=== PATIENT | female | born 1945 | race African-American/Black ===

== ENCOUNTER 2020-08-17 09:11 | Outpatient (REF) | payer MEDICARE, SELFPAY ==
[2020-08-17 11:02] LABS: Cholesterol 175 mg/dL; HDL Cholesterol 55 mg/dL; LDL Cholesterol Calculated 103 mg/dl; Triglycerides 86 mg/dL
== END 2020-08-17 09:12 | disposition home or self-care (01) ==
LOC: HO.LAB 09:11
PROVIDERS: Visit Provider Internal Medicine
DX: I10 Essential (primary) hypertension (principal)
CPT/HCPCS: 80061

== ENCOUNTER 2020-11-13 08:54 | Outpatient (REF) | payer MEDICARE, SELFPAY ==
[2020-11-13 10:18] LABS: Cholesterol 188 mg/dL; HDL Cholesterol 57 mg/dL; LDL Cholesterol Calculated 116 mg/dl; Triglycerides 75 mg/dL
== END 2020-11-13 08:55 | disposition home or self-care (01) ==
LOC: HO.LAB 08:54
PROVIDERS: PCP Internal Medicine; Visit Provider Internal Medicine
DX: E11.9 Type 2 diabetes mellitus without complications (principal)
CPT/HCPCS: 36415; 80061

== ENCOUNTER 2021-02-14 08:59 | Outpatient (REF) | payer MEDICARE, SELFPAY ==
[2021-02-14 10:54] LABS: Cholesterol 178 mg/dL; HDL Cholesterol 63 mg/dL; LDL Cholesterol Calculated 98 mg/dl; Triglycerides 85 mg/dL
== END 2021-02-14 09:00 | disposition home or self-care (01) ==
LOC: HO.LAB 08:59
PROVIDERS: PCP Internal Medicine; Visit Provider Internal Medicine
DX: E11.9 Type 2 diabetes mellitus without complications (principal)
CPT/HCPCS: 36415; 80061

== ENCOUNTER 2021-05-15 10:57 | Outpatient (REF) | payer MEDICARE, SELFPAY ==
[2021-05-15 12:38] LABS: Cholesterol 171 mg/dL; HDL Cholesterol 60 mg/dL; LDL Cholesterol Calculated 97 mg/dl; Triglycerides 73 mg/dL
== END 2021-05-15 10:58 | disposition home or self-care (01) ==
LOC: HO.LAB 10:57
PROVIDERS: PCP Internal Medicine; Visit Provider Internal Medicine
DX: E11.9 Type 2 diabetes mellitus without complications (principal)
CPT/HCPCS: 36415; 80061

== ENCOUNTER 2021-08-06 10:12 | Outpatient (REF) | payer MEDICARE, SELFPAY ==
[2021-08-06 11:37] LABS: Cholesterol 185 mg/dL; HDL Cholesterol 60 mg/dL; LDL Cholesterol Calculated 108 mg/dl; Triglycerides 86 mg/dL
== END 2021-08-06 10:13 | disposition home or self-care (01) ==
LOC: HO.LAB 10:12
PROVIDERS: PCP Internal Medicine; Visit Provider Internal Medicine
DX: E11.9 Type 2 diabetes mellitus without complications (principal)
CPT/HCPCS: 36415; 80061

== ENCOUNTER 2021-11-12 08:55 | Outpatient (REF) | payer MEDICARE, SELFPAY ==
[2021-11-12 10:38] LABS: Cholesterol 185 mg/dL; HDL Cholesterol 59 mg/dL; LDL Cholesterol Calculated 112 mg/dl; Triglycerides 72 mg/dL
== END 2021-11-12 08:56 | disposition home or self-care (01) ==
LOC: HO.LAB 08:55
PROVIDERS: PCP Internal Medicine; Visit Provider Internal Medicine
DX: Z00.00 Encounter for general adult medical examination without abnormal findings (principal)
CPT/HCPCS: 36415; 80061

== ENCOUNTER 2022-02-12 09:03 | Outpatient (REF) | payer MEDICARE, SELFPAY ==
[2022-02-12 09:49] LABS: MANUAL DIFF FLAG NO
[2022-02-12 10:35] LABS: Basophils Percent Auto 0.5 % (0-2); Eosinophils Absolute Auto 0.1 X10*3/uL (0.0-0.4); Eosinophils Percent Auto 1.4 % (0-4); Hematocrit 40.2 % (37.0-47.0); Hemoglobin 12.8 g/dl (12.0-16.0); Imm Gran Abs Auto 0.02 X10*3/uL (0.00-0.03); Imm Gran Pct Auto 0.3 % (0.0-0.4); Lymphocytes Absolute Auto 2.3 X10*3/uL (1.2-4.9); Lymphocytes Percent Auto 29.1 % (20-40); Mean Corpuscular HGB Conc 31.8 g/dl (31.0-35.0); Mean Corpuscular Hemoglobin 22.7 pg (27.0-33.0); Mean Corpuscular Volume 71.4 fL (80.0-98.0); Monocytes Absolute Auto 0.5 X10*3/uL (0.1-1.2); Monocytes Percent Auto 6.4 % (2-11); Neutrophils Absolute Auto 4.9 x10*3/uL (2.0-8.3); Neutrophils Percent Auto 62.3 % (45-73); Platelet Count 277 X10*3/uL (160-400); Red Blood Count 5.63 X10*6/uL (4.20-5.50); Red Cell Distribution Width 18.2 % (11.0-16.0); White Blood Count 7.9 X10*3/uL (4.8-10.8)
[2022-02-12 11:10] LABS: Alanine Aminotransferase 10 U/L (0-31); Alkaline Phosphatase 95 U/L (39-117); Anion Gap 12 (12-20); Aspartate Amino Transferase 17 U/L (5-31); Bilirubin Total 0.5 mg/dL (0.0-1.0); Blood Urea Nitrogen 19 mg/dL (9-16); Calcium 9.9 mg/dL (8.4-10.2); Carbon Dioxide 28 mmol/L (22-29); Chloride 105 mmol/L (96-108); Cholesterol 184 mg/dL; Estimated Glomerular Filt Rate > 60; Glucose Fasting 98 mg/dL (60-99); HDL Cholesterol 63 mg/dL; LDL Cholesterol Calculated 110 mg/dl; Potassium 3.8 mmol/L (3.3-5.1); Sodium 141 mmol/L (135-145); Total Protein 6.6 g/dL (6.5-8.0); Triglycerides 56 mg/dL
[2022-02-12 12:12] LABS: Thyroid Stimulating Hormone 0.91 uIU/mL (0.32-4.0)
== END 2022-02-12 09:04 | disposition home or self-care (01) ==
LOC: HO.LAB 09:03
PROVIDERS: PCP Internal Medicine; Visit Provider Internal Medicine
DX: Z00.00 Encounter for general adult medical examination without abnormal findings (principal); Z13.0 Encounter for screening for diseases of the blood and blood-forming organs and certain disorders involving the immune mechanism; I10 Essential (primary) hypertension
CPT/HCPCS: 36415; 80053; 80061; 84443; 85025

== ENCOUNTER 2022-05-07 08:56 | Outpatient (REF) | payer MEDICARE, SELFPAY ==
[2022-05-07 10:02] LABS: Cholesterol 181 mg/dL; HDL Cholesterol 54 mg/dL; LDL Cholesterol Calculated 110 mg/dl; Triglycerides 86 mg/dL
== END 2022-05-07 08:57 | disposition home or self-care (01) ==
LOC: HO.LAB 08:56
PROVIDERS: PCP Internal Medicine; Visit Provider Internal Medicine
DX: Z13.9 Encounter for screening, unspecified (principal)
CPT/HCPCS: 36415; 80061

== ENCOUNTER 2022-11-19 09:03 | Outpatient (REF) | payer MEDICARE, SELFPAY ==
[2022-11-19 09:30] LABS: MANUAL DIFF FLAG NO
[2022-11-19 10:11] LABS: Basophils Absolute Auto 0.1 X10*3/uL (0.0-0.2); Basophils Percent Auto 0.7 % (0-2); Eosinophils Absolute Auto 0.2 X10*3/uL (0.0-0.4); Hematocrit 39.9 % (37.0-47.0); Hemoglobin 12.5 g/dl (12.0-16.0); Imm Gran Abs Auto 0.02 X10*3/uL (0.00-0.03); Imm Gran Pct Auto 0.3 % (0.0-0.4); Lymphocytes Absolute Auto 2.4 X10*3/uL (1.2-4.9); Lymphocytes Percent Auto 32.1 % (20-40); Mean Corpuscular HGB Conc 31.3 g/dl (31.0-35.0); Mean Corpuscular Hemoglobin 22.6 pg (27.0-33.0); Mean Platelet Volume 11.9 fL (9.4-12.3); Monocytes Absolute Auto 0.5 X10*3/uL (0.1-1.2); Monocytes Percent Auto 7.4 % (2-11); Neutrophils Absolute Auto 4.2 x10*3/uL (2.0-8.3); Neutrophils Percent Auto 57.5 % (45-73); Platelet Count 205 X10*3/uL (160-400); Red Blood Count 5.54 X10*6/uL (4.20-5.50); Red Cell Distribution Width 17.1 % (11.0-16.0); White Blood Count 7.3 X10*3/uL (4.8-10.8)
[2022-11-19 10:53] LABS: Alanine Aminotransferase 11 U/L (0-31); Alkaline Phosphatase 116 U/L (39-117); Anion Gap 12 (12-20); Aspartate Amino Transferase 18 U/L (5-31); Bilirubin Total 0.8 mg/dL (0.0-1.0); Blood Urea Nitrogen 12 mg/dL (9-16); Calcium 9.7 mg/dL (8.4-10.2); Carbon Dioxide 31 mmol/L (22-29); Chloride 105 mmol/L (96-108); Cholesterol 178 mg/dL; Estimated Glomerular Filt Rate > 60; Glucose Fasting 102 mg/dL (60-99); HDL Cholesterol 61 mg/dL; LDL Cholesterol Calculated 108 mg/dl; Potassium 4.1 mmol/L (3.3-5.1); Sodium 144 mmol/L (135-145); Total Protein 6.4 g/dL (6.5-8.0); Triglycerides 46 mg/dL
[2022-11-19 11:11] LABS: Thyroid Stimulating Hormone 0.96 uIU/mL (0.32-4.0)
== END 2022-11-19 09:04 | disposition home or self-care (01) ==
LOC: HO.LAB 09:03
PROVIDERS: PCP Internal Medicine; Visit Provider Internal Medicine
DX: E03.9 Hypothyroidism, unspecified (principal); I10 Essential (primary) hypertension; E78.5 Hyperlipidemia, unspecified; Z13.0 Encounter for screening for diseases of the blood and blood-forming organs and certain disorders involving the immune mechanism
CPT/HCPCS: 36415; 80053; 80061; 84443; 85025

== ENCOUNTER 2023-02-20 09:24 | Outpatient (REF) | payer MEDICARE, SELFPAY ==
[2023-02-20 11:15] LABS: Cholesterol 172 mg/dL; HDL Cholesterol 52 mg/dL; LDL Cholesterol Calculated 107 mg/dl; Triglycerides 65 mg/dL
== END 2023-02-20 09:25 | disposition home or self-care (01) ==
LOC: HO.LAB 09:24
PROVIDERS: PCP Internal Medicine; Visit Provider Internal Medicine
DX: E78.5 Hyperlipidemia, unspecified (principal)
CPT/HCPCS: 36415; 80061

== ENCOUNTER 2023-06-10 09:21 | Outpatient (REF) | payer MEDICARE, SELFPAY ==
[2023-06-10 10:51] LABS: Cholesterol 162 mg/dL (<200); HDL Cholesterol 58 mg/dL (>40); LDL Cholesterol Calculated 91 mg/dL (<100); Triglycerides 68 mg/dL (<150)
== END 2023-06-10 09:22 | disposition home or self-care (01) ==
LOC: HO.LAB 09:21
PROVIDERS: PCP Internal Medicine; Visit Provider Internal Medicine
DX: E78.5 Hyperlipidemia, unspecified (principal)
CPT/HCPCS: 36415; 80061

== ENCOUNTER 2023-06-13 09:16 | Outpatient (AMB) | payer MEDICARE, SELFPAY ==
[2023-06-13 09:22] VITALS: BP 148/72; PULSE 100; O2SAT 99; BMI 40.6
--- NOTE | 2023-06-13 09:22 | MHC.PC.OV ---
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 Accompanied by: Spouse Allergies animal dander Allergy (Unknown, Verified 06/13/23 09:23) UNKNOWN cat dander Allergy (Unknown, Verified 06/13/23 09:23) Unknown dog dander Allergy (Unknown, Verified 06/13/23 09:23) Unknown egg Allergy (Unknown, Verified 06/13/23 09:23) Unknown horse dander Allergy (Unknown, Verified 06/13/23 09:23) Unknown peanut [PEANUT] Allergy (Unknown, Verified 06/13/23 09:23) UNKNOWN Medication List - Last Reconciled 06/13/23 by Ed Chirinos MD amlodipine 10 mg PO DAILY atorvastatin 20 mg PO DAILY olanzapine 5 mg PO BEDTIME potassium chloride ER 20 mEq PO DAILY triamterene-hydrochlorothiazid 37.5-25 mg 1 tab PO DAILY Tobacco use date assessed: 03/12/23 Fall risk assessment: No Falls in past year Last assessed Fall Risk: 06/13/23 Dental Screening Dental Screen Date: 06/13/23 Did you have a dental visit in the last 12 months?: Yes Did you have a dental problem in the last 6 months where you did not have access to dental care?: No Was dental information given to patient?: Patient has dentist HPI 3mth f/u HPI Details HTN hyperlipidemia and obesity; stable on rx PFSH Medical History Physical exam Obesity Hypertension Hyperlipidemia Surgical History History of knee replacement procedure of right knee History of knee replacement procedure of left knee Family History Father Lung cancer Mother Bone cancer Daughter No problems noted. Social History Housing: House Alcohol intake: never Patient Tobacco Use Status: Never used Tobacco e-Cigarette/Vaping Use: Never Used Second Hand Smoke Exposure: No service: No Current occupational status: retired Current occupational exposures/hazards: No Cognitive needs: No Hearing needs: No Vision needs: Yes Questionnaire PHQ-9 Over the last 2 weeks, how often have you been bothered by any of the following problems? 1. Little interest or pleasure in doing things: not at all 2. Feeling down, depressed, or hopeless: not at all 3. Trouble falling or staying asleep, or sleeping too much: not at all 4. Feeling tired or having little energy: not at all 5. Poor appetite or overeating: not at all 6. Feeling bad about yourself - or that you are a failure or have let yourself or your family down: not at all 7. Trouble concentrating on things, such as reading the newspaper or watching television: not at all 8. Moving or speaking so slowly that other people could have noticed. Or the opposite - being so fidgety or restless that you have been moving around a lot more than usual: not at all 9. Thoughts that you would be better off or of hurting yourself in some way: not at all Total score: 0 Depression Screening Interpretation: Negative 46894 - PHQ-9 Billing: Yes Source: Developed by Drs. Jai Aiken, Ramona Estevez, Tien Su and colleagues, with an educational luisito from [employer]. Thrive Questionnaire Date Thrive assessed: 11/25/22 AUDIT C Alcohol Use Questionnaire (AUDIT-C) Score Reviewed/Action Taken: Yes ALEXANDRA-7 AMB Questionnaire ALEXANDRA-7 Date ALEXANDRA - 7 assessed: 11/25/22 Source: Developed by Drs. Jai Aiken, Ramona Estevez, Tien Su and colleagues, with an educational luisito from [employer]. Review of Systems Const Denies chills, Denies headache(s) and Denies weight loss ENT Denies headache(s) Card Denies chest pain, Denies syncope, Denies irregular heart rhythm and Denies dyspnea Resp Denies chest congestion, Denies cough and Denies dyspnea GI Denies abdominal pain, Denies change in stool character, Denies nausea and Denies vomiting Musc Denies deformity and Denies joint swelling Neuro Denies syncope and Denies headache(s) Physical exam (Primary Care) Vital Signs: Last Vital Signs Pulse 100 06/13/23 09:22 BP 148/72 H 06/13/23 09:22 Pulse Ox 99 06/13/23 09:22 Oxygen Delivery Method Room Air 06/13/23 09:22 BMI result Body Mass Index 40.6 morbid obesity BMI Assessment/Plan discussion: High BMI High, discussed plan: lifestyle, weight reduction, dietary and physical activity Tobacco/Smoking Status: Tobacco use Status Tobacco use date assessed 03/12/23 06/13/23 09:24 Patient Tobacco Use Status Never used Tobacco 06/13/23 09:24 e-Cigarette/Vaping Use Never Used 06/13/23 09:24 PHQ-9: PHQ-9 Score PHQ-9: Total score 0 06/13/23 09:24 Depression Screening Interpretation: Negative Thrive Assessment: Date of Thrive Assessment Date Thrive assessed 11/25/22 06/13/23 09:24 Const General: cooperative, comfortable, no acute distress and alert Neck Neck: Yes no lymphadenopathy Thyroid: Thyroid normal Resp Effort & Inspection: normal respiratory effort Auscultation: clear to auscultation bilaterally Percussion: percussion normal Cardio Jugular venous distension: no JVD Palpation: normal PMI Rate: regular rate Rhythm: regular rhythm Heart sounds: S1 normal heart sound present and S2 normal heart sound present GI Inspection: Yes normal to inspection Palpation (GI): No hepatosplenomegaly present Skin General skin exam: no rashes or lesions noted Extrem General: Yes no clubbing, cyanosis or edema Assessment and Plan Assessment & Plan (1) Hypertension: Code(s): I10 - Essential (primary) hypertension Plan: stable; same rx (2) Hyperlipidemia: Code(s): E78.5 - Hyperlipidemia, unspecified Plan: stable (3) Obesity: Code(s): E66.9 - Obesity, unspecified Plan: as above Orders: Orders Thyroid Stimulating Hormone Today E03.9 - Hypothyroidism, unspecified Lipid Panel Today E78.5 - Hyperlipidemia, unspecified Complete Blood Count Auto Diff Today D64.9 - Anemia, unspecified Comprehensive [place]. Panel Fast Today N28.9 - Disorder of kidney and ureter, unspecified Coding Level of Care Code Est Pt Level 4 (43597) Diagnoses Hypertension I10 Hyperlipidemia E78.5 Obesity E66.9
== END 2023-06-13 09:57 | disposition home or self-care (01) ==
PROVIDERS: PCP Internal Medicine; Visit Provider Internal Medicine
DX: I10 Essential (primary) hypertension (principal); E78.5 Hyperlipidemia, unspecified; E66.9 Obesity, unspecified; Z68.41 Body mass index [BMI] 40.0-44.9, adult
CPT/HCPCS: 99214

== ENCOUNTER 2023-09-15 09:17 | Outpatient (REF) | payer MEDICARE, SELFPAY ==
[2023-09-15 09:29] LABS: MANUAL DIFF FLAG NO
[2023-09-15 09:34] LABS: Basophils Percent Auto 0.7 % (0-2); Hematocrit 40.7 % (37.0-47.0); Imm Gran Pct Auto 0.5 % (0.0-0.4); Lymphocytes Percent Auto 33.4 % (20-40); Mean Corpuscular HGB Conc 31.9 g/dl (31.0-35.0); Mean Corpuscular Hemoglobin 22.8 pg (27.0-33.0); Mean Corpuscular Volume 71.4 fL (80.0-98.0); Neutrophils Percent Auto 55.4 % (45-73); Platelet Count 267 X10*3/uL (160-400); Red Cell Distribution Width 17.3 % (11.0-16.0); White Blood Count 10.2 X10*3/uL (4.8-10.8)
[2023-09-15 09:35] LABS: Basophils Absolute Auto 0.1 X10*3/uL (0.0-0.2); Eosinophils Absolute Auto 0.2 X10*3/uL (0.0-0.4); Imm Gran Abs Auto 0.05 X10*3/uL (0.00-0.03); Lymphocytes Absolute Auto 3.4 X10*3/uL (1.2-4.9); Monocytes Absolute Auto 0.8 X10*3/uL (0.1-1.2); Neutrophils Absolute Auto 5.7 x10*3/uL (2.0-8.3)
[2023-09-15 10:21] LABS: Alanine Aminotransferase 8 U/L (0-31); Alkaline Phosphatase 104 U/L (39-117); Anion Gap 14 (12-20); Aspartate Amino Transferase 15 U/L (5-31); Bilirubin Total 0.6 mg/dL (0.0-1.0); Blood Urea Nitrogen 14 mg/dL (9-16); Calcium 9.8 mg/dL (8.4-10.2); Carbon Dioxide 24 mmol/L (22-29); Chloride 106 mmol/L (96-108); Cholesterol 172 mg/dL (<200); Estimated Glomerular Filt Rate > 60; Glucose Fasting 112 mg/dL (60-99); HDL Cholesterol 61 mg/dL (>40); LDL Cholesterol Calculated 101 mg/dL (<100); Potassium 3.3 mmol/L (3.3-5.1); Sodium 141 mmol/L (135-145); Total Protein 7.2 g/dL (6.5-8.0); Triglycerides 51 mg/dL (<150)
[2023-09-15 10:26] LABS: Thyroid Stimulating Hormone 0.91 uIU/mL (0.32-4.0)
== END 2023-09-15 09:18 | disposition home or self-care (01) ==
LOC: HO.LAB 09:17
PROVIDERS: PCP Internal Medicine; Visit Provider Internal Medicine
DX: D64.9 Anemia, unspecified (principal); N28.9 Disorder of kidney and ureter, unspecified; E78.5 Hyperlipidemia, unspecified; E03.9 Hypothyroidism, unspecified
CPT/HCPCS: 36415; 80053; 80061; 84443; 85025

== ENCOUNTER 2023-09-17 08:14 | Outpatient (AMB) | payer MEDICARE, SELFPAY ==
[2023-09-17 08:33] VITALS: BP 148/78; PULSE 95; O2SAT 99; BMI 40.2
--- NOTE | 2023-09-17 08:33 | A.OFFPC_ITS ---
Vital Signs 09/17/23 08:33 Height 5 ft 4.5 in Weight 238 lb BMI 40.2 BP 148/78 H Blood Pressure Location Lt brachial Position Sitting Pulse 95 Pulse Source Pulse Oximeter Pulse Oximetry (%) 99 Oxygen Delivery Method Room Air Intake Visit Reasons: 3mth f/u [employer]: Present Allergies animal dander Allergy (Unknown, Verified 09/17/23 08:33) UNKNOWN cat dander Allergy (Unknown, Verified 09/17/23 08:33) Unknown dog dander Allergy (Unknown, Verified 09/17/23 08:33) Unknown egg Allergy (Unknown, Verified 09/17/23 08:33) Unknown horse dander Allergy (Unknown, Verified 09/17/23 08:33) Unknown peanut [PEANUT] Allergy (Unknown, Verified 09/17/23 08:33) UNKNOWN Medication List - Last Reconciled 09/17/23 by Ed Chirinos MD amlodipine 10 mg PO DAILY atorvastatin 20 mg PO DAILY olanzapine 5 mg PO BEDTIME potassium chloride ER 20 mEq PO DAILY triamterene-hydrochlorothiazid 37.5-25 mg 1 tab PO DAILY Tobacco use date assessed: 03/12/23 Fall risk assessment: No Falls in past year Last assessed Fall Risk: 09/17/23 Dental Screening Dental Screen Date: 09/17/23 Did you have a dental visit in the last 12 months?: Yes Did you have a dental problem in the last 6 months where you did not have access to dental care?: No Was dental information given to patient?: Patient has dentist HPI 3mth f/u HPI Details HTN and hyperlip on rx; doing well; compliant [facility] Medical History Physical exam Obesity Hypertension Hyperlipidemia Surgical History History of knee replacement procedure of right knee History of knee replacement procedure of left knee Family History Father Lung cancer Mother Bone cancer Daughter No problems noted. Social History Housing: House Alcohol intake: never Patient Tobacco Use Status: Never used Tobacco e-Cigarette/Vaping Use: Never Used Second Hand Smoke Exposure: No service: No Current occupational status: retired Current occupational exposures/hazards: No Cognitive needs: No Hearing needs: No Vision needs: Yes Questionnaire Thrive Questionnaire Date Thrive assessed: 11/25/22 ALEXANDRA-7 AMB Questionnaire ALEXANDRA-7 Date ALEXANDRA - 7 assessed: 11/25/22 Source: Developed by Drs. Jai Aiken, Ramona Estevez, Tien Su and colleagues, with an educational luisito from [employer]. Review of Systems Const Denies chills, Denies headache(s) and Denies weight loss ENT Denies headache(s) Card Denies chest pain, Denies syncope, Denies irregular heart rhythm and Denies dyspnea Resp Denies chest congestion, Denies cough and Denies dyspnea GI Denies abdominal pain, Denies change in stool character, Denies nausea and Denies vomiting Musc Denies deformity and Denies joint swelling Neuro Denies syncope and Denies headache(s) Physical exam (Primary Care) Vital Signs: Last Vital Signs Pulse 95 09/17/23 08:33 BP 148/78 H 09/17/23 08:33 Pulse Ox 99 09/17/23 08:33 Oxygen Delivery Method Room Air 09/17/23 08:33 BMI result Body Mass Index 40.2 Tobacco/Smoking Status: Tobacco use Status Tobacco use date assessed 03/12/23 09/17/23 08:34 Patient Tobacco Use Status Never used Tobacco 09/17/23 08:34 e-Cigarette/Vaping Use Never Used 09/17/23 08:34 Thrive Assessment: Date of Thrive Assessment Date Thrive assessed 11/25/22 09/17/23 08:34 Const General: cooperative, comfortable, no acute distress and alert Neck Neck: Yes no lymphadenopathy Thyroid: Thyroid normal Resp Effort & Inspection: normal respiratory effort Auscultation: clear to auscultation bilaterally Percussion: percussion normal Cardio Jugular venous distension: no JVD Palpation: normal PMI Rate: regular rate Rhythm: regular rhythm Heart sounds: S1 normal heart sound present and S2 normal heart sound present GI Inspection: Yes normal to inspection Palpation (GI): No hepatosplenomegaly present Skin General skin exam: no rashes or lesions noted Extrem General: Yes no clubbing, cyanosis or edema Assessment and Plan Assessment & Plan (1) Hypertension: Code(s): I10 - Essential (primary) hypertension Plan: stable; same rx (2) Hyperlipidemia: Code(s): E78.5 - Hyperlipidemia, unspecified Plan: stable; same rx Orders: Orders Lipid Panel Today E78.5 - Hyperlipidemia, unspecified Coding Level of Care Code Est Pt Level 3 (64531) Diagnoses Hypertension I10 Hyperlipidemia E78.5
== END 2023-09-17 08:58 | disposition home or self-care (01) ==
PROVIDERS: PCP Internal Medicine; Visit Provider Internal Medicine
DX: I10 Essential (primary) hypertension (principal); E78.5 Hyperlipidemia, unspecified
CPT/HCPCS: 99213

== ENCOUNTER 2023-10-23 10:40 | Outpatient (AMB) | payer MEDICARE, SELFPAY ==
[2023-10-23 11:06] VITALS: BP 168/82; PULSE 123; TEMP 36.8; O2SAT 98; BMI 41.4
--- NOTE | 2023-10-23 11:06 | MHC.OFFWIV ---
Intake Vital Signs 10/23/23 11:06 Height 5 ft 4.5 in Weight 245 lb BMI 41.4 BP 168/82 H Blood Pressure Location Lt brachial Position Sitting Pulse 123 H Pulse Source Pulse Oximeter Temp 98.3 F Temp Source Oral Pulse Oximetry (%) 98 Oxygen Delivery Method Room Air Intake Visit Reasons: EP Cough/Cold [phone] Intake Note: pt is here today for cough cold started last friday Patient Tobacco Use Status: Never used Tobacco Allergies animal dander Allergy (Unknown, Verified 10/23/23 11:07) UNKNOWN cat dander Allergy (Unknown, Verified 10/23/23 11:07) Unknown dog dander Allergy (Unknown, Verified 10/23/23 11:07) Unknown egg Allergy (Unknown, Verified 10/23/23 11:07) Unknown horse dander Allergy (Unknown, Verified 10/23/23 11:07) Unknown peanut [PEANUT] Allergy (Unknown, Verified 10/23/23 11:07) UNKNOWN Do you need a note to return to daycare/school/sports/work: No HPI HPI Comments History of Present Illness Details 77 y/o female presents to walk in clinic with c/o cough and sinus cold x 7 days. [facility] Medical History Physical exam Obesity Hypertension Hyperlipidemia Surgical History History of knee replacement procedure of right knee History of knee replacement procedure of left knee Family History Father Lung cancer Mother Bone cancer Daughter No problems noted. Social History Housing: House Alcohol intake: never Patient Tobacco Use Status: Never used Tobacco e-Cigarette/Vaping Use: Never Used Second Hand Smoke Exposure: No service: No Current occupational status: retired Current occupational exposures/hazards: No Cognitive needs: No Hearing needs: No Vision needs: Yes Physical Exam Vital Signs: Last Vital Signs Temp 98.3 F 10/23/23 11:06 Pulse 123 H 10/23/23 11:06 BP 168/82 H 10/23/23 11:06 Pulse Ox 98 10/23/23 11:06 Oxygen Delivery Method Room Air 01/25/24 11:06 BMI result Body Mass Index 41.4 Const General: comfortable and no acute distress HEENT Head: Yes normocephalic Ears: external ears normal and TM's normal bilaterally General nose exam: Normal nasal mucous membranes and turbinates present Face and sinus: Yes sinuses nontender Mouth: moist mucous membranes Throat: Yes uvula midline Resp Effort & Inspection: normal respiratory effort Auscultation: clear to auscultation bilaterally Cardio Rate: regular rate Rhythm: regular rhythm Assessment & Plan Assessment & Plan (1) Cough in adult: Code(s): R05.9 - Cough, unspecified Plan: - OTC cold remedies - Rest and hydrate with warm fluids with honey (2) Upper respiratory infection: Code(s): J06.9 - Acute upper respiratory infection, unspecified Qualifiers: URI type: unspecified viral URI Qualified Code(s): J06.9 - Acute upper respiratory infection, unspecified Plan: - OTC cold remedies - Rest and hydrate with warm fluids with honey - SARs Orders: Orders SARS-CoV2/FLU/RSV Today J06.9 - Acute upper respiratory infection, unspecified, R05.9 - Cough, unspecified Medications: New acetaminophen 1,000 mg (2 x 500 mg) PO Q6H PRN 30 caps 0RF fever R51.9 - Headache, unspecified benzonatate 100 mg PO TID 30 caps 0RF J06.9 - Acute upper respiratory infection, unspecified, R05.9 - Cough, unspecified Coding Level of Care Code Est Pt Level 2 (38723) Diagnoses Cough in adult R05.9 Viral upper respiratory tract infection J06.9 URI type: unspecified viral URI Time Spent (min) 10
== END 2023-10-23 12:07 | disposition home or self-care (01) ==
PROVIDERS: PCP Internal Medicine; Visit Provider Nurse Practitioner Family
DX: R05.9 Cough, unspecified (principal); J06.9 Acute upper respiratory infection, unspecified
CPT/HCPCS: 99213

== ENCOUNTER 2023-10-23 15:03 | Outpatient (REF) | payer MEDICARE, SELFPAY ==
[2023-10-23 15:59] LABS: Influenza A PCR NEGATIVE (Negative); Influenza B PCR NEGATIVE (Negative); Resp Syncy Virus RNA Qual PCR NEGATIVE (Negative); SARS COV2 PCR INHOUSE NEGATIVE (Negative)
== END 2023-10-23 15:04 | disposition home or self-care (01) ==
LOC: HO.LNP 15:03
PROVIDERS: Visit Provider Nurse Practitioner Family
DX: Z11.52 Encounter for screening for COVID-19 (principal); R05.9 Cough, unspecified; J06.9 Acute upper respiratory infection, unspecified
CPT/HCPCS: 0241U

== ENCOUNTER 2023-12-16 09:28 | Outpatient (REF) | payer MEDICARE, SELFPAY ==
[2023-12-16 11:08] LABS: Cholesterol 176 mg/dL (<200); HDL Cholesterol 67 mg/dL (>40); LDL Cholesterol Calculated 99 mg/dL (<100); Triglycerides 52 mg/dL (<150)
== END 2023-12-16 09:29 | disposition home or self-care (01) ==
LOC: HO.LAB 09:28
PROVIDERS: PCP Internal Medicine; Visit Provider Internal Medicine
DX: E78.5 Hyperlipidemia, unspecified (principal)
CPT/HCPCS: 36415; 80061

== ENCOUNTER 2023-12-22 09:17 | Outpatient (AMB) | payer MEDICARE, SELFPAY ==
[2023-12-22 09:19] VITALS: BP 152/76; PULSE 103; O2SAT 99; BMI 41.7
--- NOTE | 2023-12-22 09:19 | A.OFFPC_ITS ---
Vital Signs 12/22/23 09:19 Height 5 ft 4.5 in Weight 247 lb BMI 41.7 BP 152/76 H Blood Pressure Location Lt brachial Position Sitting Pulse 103 H Pulse Source Pulse Oximeter Pulse Oximetry (%) 99 Oxygen Delivery Method Room Air Intake Visit Reasons: 3mth f/u Vocational Trainer: Not Required per policy Accompanied by: Self / Same As Patient Allergies animal dander Allergy (Unknown, Verified 12/22/23 09:19) UNKNOWN cat dander Allergy (Unknown, Verified 12/22/23 09:19) Unknown dog dander Allergy (Unknown, Verified 12/22/23 09:19) Unknown egg Allergy (Unknown, Verified 12/22/23 09:19) Unknown horse dander Allergy (Unknown, Verified 12/22/23 09:19) Unknown peanut [PEANUT] Allergy (Unknown, Verified 12/22/23 09:19) UNKNOWN Medication List - Last Reconciled 12/23/23 by Ed Chirinos MD amlodipine 10 mg PO DAILY atorvastatin 20 mg PO DAILY olanzapine 5 mg PO BEDTIME potassium chloride ER 20 mEq PO DAILY triamterene-hydrochlorothiazid 37.5-25 mg 1 tab PO DAILY Tobacco use date assessed: 12/22/23 Fall risk assessment: No Falls in past year Last assessed Fall Risk: 12/22/23 Dental Screening Dental Screen Date: 12/22/23 Did you have a dental visit in the last 12 months?: Yes Did you have a dental problem in the last 6 months where you did not have access to dental care?: No Was dental information given to patient?: Patient has dentist HPI 3mth f/u HPI Details HTN hyperlipidemia and chronic anxiety PFSH Medical History Physical exam Obesity Hypertension Hyperlipidemia Surgical History History of knee replacement procedure of right knee History of knee replacement procedure of left knee Family History Father Lung cancer Mother Bone cancer Daughter No problems noted. Social History Housing: House Alcohol intake: never Patient Tobacco Use Status: Never used Tobacco e-Cigarette/Vaping Use: Never Used Second Hand Smoke Exposure: No service: No Current occupational status: retired Current occupational exposures/hazards: No Cognitive needs: No Hearing needs: No Vision needs: Yes Questionnaire PHQ-9 Over the last 2 weeks, how often have you been bothered by any of the following problems? 1. Little interest or pleasure in doing things: not at all 2. Feeling down, depressed, or hopeless: not at all 3. Trouble falling or staying asleep, or sleeping too much: not at all 4. Feeling tired or having little energy: not at all 5. Poor appetite or overeating: not at all 6. Feeling bad about yourself - or that you are a failure or have let yourself or your family down: not at all 7. Trouble concentrating on things, such as reading the newspaper or watching television: not at all 8. Moving or speaking so slowly that other people could have noticed. Or the opposite - being so fidgety or restless that you have been moving around a lot more than usual: not at all 9. Thoughts that you would be better off or of hurting yourself in some way: not at all Total score: 0 Depression Screening Interpretation: Negative Depression Screening Done: Yes 80392 - PHQ-9 Billing: Yes Source: Developed by Drs. Jai Aiken, Ramona Estevez, Tien Su and colleagues, with an educational luisito from [employer]. Thrive Questionnaire Date Thrive assessed: 12/22/23 I am a: Patient What is your living situation today?: I have a steady place to live Within the past 12 months, did the food you bought not last and you didn't have the money to get more?: Never true Within the past 12 months, did you worry whether your food would run out before you got money to buy more?: Never true Do you have trouble paying for medicines?: No Do you have trouble getting transportation to medical appointments?: No Do you have trouble paying your heating and electricity bill?: No Do you have trouble taking care of your child, family member or friend?: No Do you have trouble with day-to-day activities such as bathing, preparing meals, shopping, managing finances, etc.?: No Are you currently unemployed and looking for a job?: No Are you interested in more education?: No Please select the resources that you would like help with: None THRIVE Score: 0 AUDIT C Alcohol Use Questionnaire (AUDIT-C) 1. How often do you have a drink containing alcohol?: Never Total Score: 0 Score Reviewed/Action Taken: Yes ALEXANDRA-7 AMB Questionnaire ALEXANDRA-7 Date ALEXANDRA - 7 assessed: 12/22/23 Feeling nervous, anxious, or on edge: 0 = Not at all Not being able to stop or control worryin = Not at all Worrying too much about different things: 0 = Not at all Trouble relaxin = Not at all Being so restless that it is hard to sit still: 0 = Not at all Becoming easily annoyed or irritable: 0 = Not at all Feeling afraid as if something awful might happen: 0 = Not at all Total ALEXANDRA-7 score (0-4 normal; 5-9 mild; 10-14 moderate; 15-21 severe): 0 Source: Developed by Drs. Jai Aiken, Ramona Estevez, Tien Su and colleagues, with an educational luisito from [employer]. ALEXANDRA-7 Assessment Billing ALEXANDRA-7 Assessment Tool: ALEXANDRA-7 Assessment [id number] Review of Systems Const Denies chills, Denies headache(s) and Denies weight loss ENT Denies headache(s) Card Denies chest pain, Denies syncope, Denies irregular heart rhythm and Denies dyspnea Resp Denies chest congestion, Denies cough and Denies dyspnea GI Denies abdominal pain, Denies change in stool character, Denies nausea and Denies vomiting Musc Denies deformity and Denies joint swelling Neuro Denies syncope and Denies headache(s) Physical exam (Primary Care) Vital Signs: Last Vital Signs Pulse 103 H 12/22/23 09:19 BP 152/76 H 12/22/23 09:19 Pulse Ox 99 12/22/23 09:19 Oxygen Delivery Method Room Air 12/22/23 09:19 BMI result Body Mass Index 41.7 Tobacco/Smoking Status: Tobacco use Status Tobacco use date assessed 12/22/23 12/22/23 09:20 Patient Tobacco Use Status Never used Tobacco 12/22/23 09:20 e-Cigarette/Vaping Use Never Used 12/22/23 09:20 PHQ-9: PHQ-9 Score PHQ-9: Total score 0 12/22/23 09:32 Depression Screening Interpretation: Negative Thrive Assessment: Date of Thrive Assessment Date Thrive assessed 12/22/23 12/22/23 09:20 Const General: cooperative, comfortable, no acute distress and alert Neck Neck: Yes no lymphadenopathy Thyroid: Thyroid normal Resp Effort & Inspection: normal respiratory effort Auscultation: clear to auscultation bilaterally Percussion: percussion normal Cardio Jugular venous distension: no JVD Palpation: normal PMI Rate: regular rate Rhythm: regular rhythm Heart sounds: S1 normal heart sound present and S2 normal heart sound present GI Inspection: Yes normal to inspection Palpation (GI): No hepatosplenomegaly present Skin General skin exam: no rashes or lesions noted Extrem General: Yes no clubbing, cyanosis or edema Assessment and Plan Assessment & Plan (1) Hypertension: Code(s): I10 - Essential (primary) hypertension Plan: stable; same rx (2) Hyperlipidemia: Code(s): E78.5 - Hyperlipidemia, unspecified Plan: stable; same rx (3) Anxiety: Code(s): F41.9 - Anxiety disorder, unspecified Plan: ref Orders: Orders Complete Blood Count Auto Diff 12/22/23 D64.9 - Anemia, unspecified Lipid Panel 12/22/23 E78.5 - Hyperlipidemia, unspecified Comprehensive [place]. Panel Fast 12/22/23 N28.9 - Disorder of kidney and ureter, unspecified Thyroid Stimulating Hormone 12/22/23 E03.9 - Hypothyroidism, unspecified Referrals Psychology Referral F41.9 - Anxiety disorder, unspecified Medications: Refilled amlodipine 10 mg PO DAILY 90 tabs 8RF Coding Level of Care Code Est Pt Level 4 (09747) Diagnoses Hypertension I10 Hyperlipidemia E78.5 Anxiety F41.9 Additional Codes ALEXANDRA-7 Assessment Billing - ALEXANDRA-7 Assessment Tool: ALEXANDRA-7 Assessment [id number] ([id number])
== END 2023-12-22 09:56 | disposition home or self-care (01) ==
PROVIDERS: PCP Internal Medicine; Visit Provider Internal Medicine
DX: I10 Essential (primary) hypertension (principal); E78.5 Hyperlipidemia, unspecified; F41.9 Anxiety disorder, unspecified
CPT/HCPCS: 99214

== ENCOUNTER 2024-01-22 09:20 | Outpatient (AMB) | payer MEDICARE, SELFPAY ==
[2024-01-22 09:26] VITALS: BP 150/82; PULSE 100; O2SAT 98; BMI 40.4
--- NOTE | 2024-01-22 09:26 | MHC.PC.OV ---
Vital Signs 01/22/24 09:26 Height 5 ft 4.5 in Weight 239 lb BMI 40.4 BP 150/82 H Blood Pressure Location Lt brachial Position Sitting Pulse 100 Pulse Source Pulse Oximeter Pulse Oximetry (%) 98 Oxygen Delivery Method Room Air Intake Visit Reasons: 1mth f/u Travograph Operator Required: No Freight Flagman: Not Required per policy Accompanied by: Self / Same As Patient Allergies animal dander Allergy (Unknown, Verified 01/22/24 09:26) UNKNOWN cat dander Allergy (Unknown, Verified 01/22/24 09:26) Unknown dog dander Allergy (Unknown, Verified 01/22/24 09:26) Unknown egg Allergy (Unknown, Verified 01/22/24 09:26) Unknown horse dander Allergy (Unknown, Verified 01/22/24 09:26) Unknown peanut [PEANUT] Allergy (Unknown, Verified 01/22/24 09:26) UNKNOWN Tobacco use date assessed: 12/22/23 Fall risk assessment: No Falls in past year Last assessed Fall Risk: 01/22/24 Dental Screening Dental Screen Date: 12/22/23 HPI 1mth f/u HPI Details HTN on Rx; tolerating rx; compliant PFSH Medical History Physical exam Obesity Hypertension Hyperlipidemia Surgical History History of knee replacement procedure of right knee History of knee replacement procedure of left knee Family History Father Lung cancer Mother Bone cancer Daughter No problems noted. Social History Housing: House Alcohol intake: never Patient Tobacco Use Status: Never used Tobacco e-Cigarette/Vaping Use: Never Used Second Hand Smoke Exposure: No service: No Current occupational status: retired Current occupational exposures/hazards: No Cognitive needs: No Hearing needs: No Vision needs: Yes Questionnaire Thrive Questionnaire Date Thrive assessed: 12/22/23 ALEXANDRA-7 AMB Questionnaire ALEXANDRA-7 Date ALEXANDRA - 7 assessed: 12/22/23 Source: Developed by Drs. Jai Aiken, Ramona Estevez, Tien Su and colleagues, with an educational luisito from [employer]. Review of Systems Const Denies chills, Denies headache(s) and Denies weight loss ENT Denies headache(s) Card Denies chest pain, Denies syncope, Denies irregular heart rhythm and Denies dyspnea Resp Denies chest congestion, Denies cough and Denies dyspnea GI Denies abdominal pain, Denies change in stool character, Denies nausea and Denies vomiting Musc Denies deformity and Denies joint swelling Neuro Denies syncope and Denies headache(s) Physical exam (Primary Care) Vital Signs: Last Vital Signs Pulse 100 01/22/24 09:26 BP 150/82 H 01/22/24 09:26 Pulse Ox 98 01/22/24 09:26 Oxygen Delivery Method Room Air 01/22/24 09:26 BMI result Body Mass Index 40.4 Tobacco/Smoking Status: Tobacco use Status Tobacco use date assessed 12/22/23 01/22/24 09:27 Patient Tobacco Use Status Never used Tobacco 01/22/24 09:27 e-Cigarette/Vaping Use Never Used 01/22/24 09:27 Thrive Assessment: Date of Thrive Assessment Date Thrive assessed 12/22/23 01/22/24 09:27 Const General: cooperative, comfortable, no acute distress and alert Neck Neck: Yes no lymphadenopathy Thyroid: Thyroid normal Resp Effort & Inspection: normal respiratory effort Auscultation: clear to auscultation bilaterally Percussion: percussion normal Cardio Jugular venous distension: no JVD Palpation: normal PMI Rate: regular rate Rhythm: regular rhythm Heart sounds: S1 normal heart sound present and S2 normal heart sound present GI Inspection: Yes normal to inspection Palpation (GI): No hepatosplenomegaly present Skin General skin exam: no rashes or lesions noted Extrem General: Yes no clubbing, cyanosis or edema Assessment and Plan Assessment & Plan (1) Hypertension: Code(s): I10 - Essential (primary) hypertension Plan: stable; has appt in February Medications: Refilled diltiazem HCl CD (Cardizem CD) 240 mg PO DAILY 90 caps 3RF Coding Level of Care Code Est Pt Level 3 (07331) Diagnoses Hypertension I10
== END 2024-01-22 09:46 | disposition home or self-care (01) ==
PROVIDERS: PCP Internal Medicine; Visit Provider Internal Medicine
DX: I10 Essential (primary) hypertension (principal)
CPT/HCPCS: 99213

== ENCOUNTER 2024-03-22 09:03 | Outpatient (REF) | payer MEDICARE, SELFPAY ==
[2024-03-22 09:14] LABS: MANUAL DIFF FLAG NO
[2024-03-22 09:59] LABS: Basophils Absolute Auto 0.1 X10*3/uL (0.0-0.2); Basophils Percent Auto 0.6 % (0-2); Eosinophils Absolute Auto 0.1 X10*3/uL (0.0-0.4); Eosinophils Percent Auto 1.5 % (0-4); Hematocrit 43.8 % (37.0-47.0); Hemoglobin 14.1 g/dl (12.0-16.0); Imm Gran Abs Auto 0.02 X10*3/uL (0.00-0.03); Imm Gran Pct Auto 0.2 % (0.0-0.4); Lymphocytes Absolute Auto 2.8 X10*3/uL (1.2-4.9); Lymphocytes Percent Auto 32.6 % (20-40); Mean Corpuscular HGB Conc 32.2 g/dl (31.0-35.0); Mean Corpuscular Volume 71.6 fL (80.0-98.0); Mean Platelet Volume 11.8 fL (9.4-12.3); Monocytes Absolute Auto 0.7 X10*3/uL (0.1-1.2); Monocytes Percent Auto 8.1 % (2-11); Neutrophils Absolute Auto 4.9 x10*3/uL (2.0-8.3); Platelet Count 210 X10*3/uL (160-400); Red Blood Count 6.12 X10*6/uL (4.20-5.50); Red Cell Distribution Width 18.2 % (11.0-16.0); White Blood Count 8.6 X10*3/uL (4.8-10.8)
[2024-03-22 10:33] LABS: Alanine Aminotransferase 7 U/L (0-31); Albumin Level 4.1 g/dL (3.5-5.0); Alkaline Phosphatase 104 U/L (39-117); Anion Gap 16 (12-20); Aspartate Amino Transferase 15 U/L (5-31); Bilirubin Total 0.5 mg/dL (0.0-1.0); Blood Urea Nitrogen 11 mg/dL (9-16); Calcium 9.8 mg/dL (8.4-10.2); Carbon Dioxide 26 mmol/L (22-29); Chloride 105 mmol/L (96-108); Cholesterol 160 mg/dL (<200); Estimated Glomerular Filt Rate > 60; Glucose Fasting 106 mg/dL (60-99); HDL Cholesterol 56 mg/dL (>40); LDL Cholesterol Calculated 92 mg/dL (<100); Potassium 3.4 mmol/L (3.3-5.1); Sodium 144 mmol/L (135-145); Total Protein 7.2 g/dL (6.5-8.0); Triglycerides 61 mg/dL (<150)
[2024-03-22 10:51] LABS: Thyroid Stimulating Hormone 0.75 uIU/mL (0.32-4.0)
== END 2024-03-22 09:04 | disposition home or self-care (01) ==
LOC: HO.LAB 09:03
PROVIDERS: PCP Internal Medicine; Visit Provider Internal Medicine
DX: D64.9 Anemia, unspecified (principal); N28.9 Disorder of kidney and ureter, unspecified; E03.9 Hypothyroidism, unspecified; E78.5 Hyperlipidemia, unspecified
CPT/HCPCS: 36415; 80053; 80061; 84443; 85025

== ENCOUNTER 2024-03-26 08:13 | Outpatient (AMB) | payer MEDICARE, SELFPAY ==
[2024-03-26 08:42] VITALS: BP 136/78; PULSE 95; O2SAT 99; BMI 41.2
--- NOTE | 2024-03-26 08:42 | MHC.PC.OV ---
Vital Signs 03/26/24 08:42 Height 5 ft 4.5 in Weight 244 lb BMI 41.2 BP 136/78 Blood Pressure Location Lt brachial Position Sitting Pulse 95 Pulse Source Pulse Oximeter Pulse Oximetry (%) 99 Oxygen Delivery Method Room Air Intake Visit Reasons: 3mth f/u Allergies animal dander Allergy (Unknown, Verified 01/22/24 09:26) UNKNOWN cat dander Allergy (Unknown, Verified 01/22/24 09:26) Unknown dog dander Allergy (Unknown, Verified 01/22/24 09:26) Unknown egg Allergy (Unknown, Verified 01/22/24 09:26) Unknown horse dander Allergy (Unknown, Verified 01/22/24 09:26) Unknown peanut [PEANUT] Allergy (Unknown, Verified 01/22/24 09:) UNKNOWN Tobacco use date assessed: 12/22/23 Fall risk assessment: No Falls in past year Last assessed Fall Risk: 03/26/24 Dental Screening Dental Screen Date: 12/22/23 HPI 3mth f/u HPI Details htn on rx; has some paranoid delusions and confusion; present for 5 years but worsening PFSH Medical History Physical exam Obesity Hypertension Hyperlipidemia Surgical History History of knee replacement procedure of right knee History of knee replacement procedure of left knee Family History Father Lung cancer Mother Bone cancer Daughter No problems noted. Social History Housing: House Alcohol intake: never Patient Tobacco Use Status: Never used Tobacco e-Cigarette/Vaping Use: Never Used Second Hand Smoke Exposure: No service: No Current occupational status: retired Current occupational exposures/hazards: No Cognitive needs: No Hearing needs: No Vision needs: Yes Questionnaire Thrive Questionnaire Date Thrive assessed: 12/22/23 ALEXANDRA-7 AMB Questionnaire ALEXANDRA-7 Date ALEXANDRA - 7 assessed: 12/22/23 Source: Developed by Drs. Jai Aiken, Ramona Estevez, Tien Su and colleagues, with an educational luisito from [employer]. Review of Systems Const Denies chills, Denies headache(s) and Denies weight loss ENT Denies headache(s) Card Denies chest pain, Denies syncope, Denies irregular heart rhythm and Denies dyspnea Resp Denies chest congestion, Denies cough and Denies dyspnea GI Denies abdominal pain, Denies change in stool character, Denies nausea and Denies vomiting Musc Denies deformity and Denies joint swelling Neuro Denies syncope and Denies headache(s) Physical exam (Primary Care) Vital Signs: Last Vital Signs Pulse 95 03/26/24 08:42 BP 136/78 03/26/24 08:42 Pulse Ox 99 03/26/24 08:42 Oxygen Delivery Method Room Air 03/26/24 08:42 BMI result Body Mass Index 41.2 Tobacco/Smoking Status: Tobacco use Status Tobacco use date assessed 12/22/23 03/26/24 08:42 Patient Tobacco Use Status Never used Tobacco 03/26/24 08:42 e-Cigarette/Vaping Use Never Used 03/26/24 08:42 Thrive Assessment: Date of Thrive Assessment Date Thrive assessed 12/22/23 03/26/24 08:42 Const General: cooperative, comfortable, no acute distress and alert Neck Neck: Yes no lymphadenopathy Thyroid: Thyroid normal Resp Effort & Inspection: normal respiratory effort Auscultation: clear to auscultation bilaterally Percussion: percussion normal Cardio Jugular venous distension: no JVD Palpation: normal PMI Rate: regular rate Rhythm: regular rhythm Heart sounds: S1 normal heart sound present and S2 normal heart sound present GI Inspection: Yes normal to inspection Palpation (GI): No hepatosplenomegaly present Skin General skin exam: no rashes or lesions noted Extrem General: Yes no clubbing, cyanosis or edema Assessment and Plan Assessment & Plan (1) Hypertension: Code(s): I10 - Essential (primary) hypertension Plan: stable; same rx (2) Anxiety: Code(s): F41.9 - Anxiety disorder, unspecified Plan: referred to comm moriah (3) Hyperlipidemia: Code(s): E78.5 - Hyperlipidemia, unspecified Plan: stable; same rx Orders: Orders Lipid Panel Today Z13.220 - Encounter for screening for lipoid disorders Thyroid Stimulating Hormone Today Z13.29 - Encounter for screening for other suspected endocrine disorder Coding Level of Care Code Est Pt Level 4 (01444) Diagnoses Hypertension I10 Anxiety F41.9 Hyperlipidemia E78.5
== END 2024-03-26 09:15 | disposition home or self-care (01) ==
PROVIDERS: PCP Internal Medicine; Visit Provider Internal Medicine
DX: I10 Essential (primary) hypertension (principal); F41.9 Anxiety disorder, unspecified; E78.5 Hyperlipidemia, unspecified
CPT/HCPCS: 99214

== ENCOUNTER 2024-07-26 08:56 | Outpatient (REF) | payer MEDICARE, SELFPAY ==
[2024-07-26 10:08] LABS: Cholesterol 166 mg/dL (<200); HDL Cholesterol 56 mg/dL (>40); LDL Cholesterol Calculated 97 mg/dL (<100); Triglycerides 69 mg/dL (<150)
[2024-07-26 10:26] LABS: Thyroid Stimulating Hormone 1.08 uIU/mL (0.32-4.0)
== END 2024-07-26 08:57 | disposition home or self-care (01) ==
LOC: HO.LAB 08:56
PROVIDERS: PCP Internal Medicine; Visit Provider Internal Medicine
DX: Z13.29 Encounter for screening for other suspected endocrine disorder (principal); Z13.220 Encounter for screening for lipoid disorders
CPT/HCPCS: 36415; 80061; 84443

== ENCOUNTER 2024-07-30 08:23 | Outpatient (AMB) | payer MEDICARE, SELFPAY ==
--- NOTE | 2024-07-30 08:33 | MHC.PC.OV ---
Vital Signs 07/30/24 08:50 Height 5 ft 4.5 in Weight 250 lb BMI 42.2 BP 154/82 H Blood Pressure Location Lt brachial Position Sitting Pulse 97 Pulse Source Pulse Oximeter Pulse Oximetry (%) 97 Oxygen Delivery Method Room Air Intake Visit Reasons: 3 month f/u Glassware Finisher Required: No Accompanied by: Self / Same As Patient Allergies animal dander Allergy (Unknown, Verified 07/30/24 08:50) UNKNOWN cat dander Allergy (Unknown, Verified 07/30/24 08:50) Unknown dog dander Allergy (Unknown, Verified 07/30/24 08:50) Unknown egg Allergy (Unknown, Verified 07/30/24 08:50) Unknown horse dander Allergy (Unknown, Verified 07/30/24 08:50) Unknown peanut [PEANUT] Allergy (Unknown, Verified 07/30/24 08:50) UNKNOWN Medication List - Last Reconciled 07/30/24 by Ed Chirinos MD atorvastatin 20 mg PO DAILY cholecalciferol (vitamin D3) 25 mcg PO DAILY diltiazem HCl CD (Cardizem CD) 240 mg PO DAILY olanzapine 5 mg PO BEDTIME potassium chloride ER 20 mEq PO DAILY triamterene-hydrochlorothiazid 37.5-25 mg 1 tab PO DAILY Tobacco use date assessed: 12/22/23 Fall risk assessment: No Falls in past year Last assessed Fall Risk: 07/30/24 Dental Screening Dental Screen Date: 12/22/23 HPI 3 month f/u HPI Details HTN on Rx; BP fine at home; element of white coat effect PFSH Medical History Physical exam Obesity Hypertension Hyperlipidemia Surgical History History of knee replacement procedure of right knee History of knee replacement procedure of left knee Family History Father Lung cancer Mother Bone cancer Daughter No problems noted. Social History Housing: House Alcohol intake: never Patient Tobacco Use Status: Never used Tobacco Tobacco use type: Cigarette e-Cigarette/Vaping Use: Never Used Second Hand Smoke Exposure: No service: No Current occupational status: retired Current occupational exposures/hazards: No Cognitive needs: No Hearing needs: No Vision needs: Yes Questionnaire Thrive Questionnaire Date Thrive assessed: 12/22/23 AUDIT C Alcohol Use Questionnaire (AUDIT-C) 2. How many drinks containing alcohol do you have on a typical day when you are drinking?: 1 or 2 3. How often do you have six or more drinks on one occasion?: Never Total Score: 0 ALEXANDRA-7 AMB Questionnaire ALEXANDRA-7 Date ALEXANDRA - 7 assessed: 12/22/23 Source: Developed by Drs. Jai Aiken, Ramona Estevez, Tien Su and colleagues, with an educational luisito from [employer]. Review of Systems Const Denies chills, Denies headache(s) and Denies weight loss ENT Denies headache(s) Card Denies chest pain, Denies syncope, Denies irregular heart rhythm and Denies dyspnea Resp Denies chest congestion, Denies cough and Denies dyspnea GI Denies abdominal pain, Denies change in stool character, Denies nausea and Denies vomiting Musc Denies deformity and Denies joint swelling Neuro Denies syncope and Denies headache(s) Physical exam (Primary Care) Vital Signs: Last Vital Signs Pulse 97 07/30/24 08:50 BP 154/82 H 07/30/24 08:50 Pulse Ox 97 07/30/24 08:50 Oxygen Delivery Method Room Air 07/30/24 08:50 BMI result Body Mass Index 42.2 Tobacco/Smoking Status: Tobacco use Status Tobacco use date assessed 12/22/23 07/30/24 08:33 Patient Tobacco Use Status Never used Tobacco 07/30/24 08:33 Tobacco use type Cigarette 07/30/24 08:51 e-Cigarette/Vaping Use Never Used 07/30/24 08:33 Thrive Assessment: Date of Thrive Assessment Date Thrive assessed 12/22/23 07/30/24 08:33 Const General: cooperative, comfortable, no acute distress and alert Neck Neck: Yes no lymphadenopathy Thyroid: Thyroid normal Resp Effort & Inspection: normal respiratory effort Auscultation: clear to auscultation bilaterally Percussion: percussion normal Cardio Jugular venous distension: no JVD Palpation: normal PMI Rate: regular rate Rhythm: regular rhythm Heart sounds: S1 normal heart sound present and S2 normal heart sound present GI Inspection: Yes normal to inspection Palpation (GI): No hepatosplenomegaly present Skin General skin exam: no rashes or lesions noted Extrem General: Yes no clubbing, cyanosis or edema Coding Level of Care Code Est Pt Level 3 (58049) Diagnoses Hypertension I10 Assessment & Plan Assessment & Plan (1) Hypertension: Code(s): I10 - Essential (primary) hypertension Category: Medical Plan: stable; same rx
[2024-07-30 08:50] VITALS: BP 154/82; PULSE 97; O2SAT 97; BMI 42.2
== END 2024-07-30 09:03 | disposition home or self-care (01) ==
LOC: HO.HMCH 08:23
PROVIDERS: PCP Internal Medicine; Visit Provider Internal Medicine
DX: I10 Essential (primary) hypertension (principal)

== ENCOUNTER → 2024-07-30 08:23 | Outpatient (BNVA) | payer MEDICARE, SELFPAY | PROVIDERS: PCP Internal Medicine; Visit Provider Internal Medicine | DX: I10 Essential (primary) hypertension (principal) | CPT/HCPCS: 99212 ==

== ENCOUNTER 2024-11-03 10:52 | Outpatient (REF) | payer MEDICARE, SELFPAY ==
[2024-11-03 11:07] LABS: MANUAL DIFF FLAG NO
[2024-11-03 11:54] LABS: Basophils Percent Auto 0.3 % (0-2); Eosinophils Absolute Auto 0.1 X10*3/uL (0.0-0.4); Eosinophils Percent Auto 1.6 % (0-4); Hematocrit 44.2 % (37.0-47.0); Hemoglobin 13.6 g/dl (12.0-16.0); Imm Gran Abs Auto 0.05 X10*3/uL (0.00-0.03); Imm Gran Pct Auto 0.6 % (0.0-0.4); Lymphocytes Absolute Auto 2.7 X10*3/uL (1.2-4.9); Lymphocytes Percent Auto 31.3 % (20-40); Mean Corpuscular HGB Conc 30.8 g/dl (31.0-35.0); Mean Corpuscular Hemoglobin 22.1 pg (27.0-33.0); Mean Corpuscular Volume 71.9 fL (80.0-98.0); Mean Platelet Volume 11.9 fL (9.4-12.3); Monocytes Absolute Auto 0.7 X10*3/uL (0.1-1.2); Monocytes Percent Auto 7.6 % (2-11); Neutrophils Absolute Auto 5.1 x10*3/uL (2.0-8.3); Neutrophils Percent Auto 58.6 % (45-73); Platelet Count 204 X10*3/uL (160-400); Red Blood Count 6.15 X10*6/uL (4.20-5.50); Red Cell Distribution Width 17.2 % (11.0-16.0); White Blood Count 8.7 X10*3/uL (4.8-10.8)
[2024-11-03 12:30] LABS: Alanine Aminotransferase 7 U/L (0-31); Albumin Level 4.1 g/dL (3.5-5.0); Alkaline Phosphatase 102 U/L (39-117); Anion Gap 13 (12-20); Aspartate Amino Transferase 19 U/L (5-31); Bilirubin Total 0.5 mg/dL (0.0-1.0); Blood Urea Nitrogen 13 mg/dL (9-16); Calcium 9.3 mg/dL (8.4-10.2); Carbon Dioxide 27 mmol/L (22-29); Chloride 106 mmol/L (96-108); Cholesterol 162 mg/dL (<200); Estimated Glomerular Filt Rate > 60; Glucose Fasting 109 mg/dL (60-99); HDL Cholesterol 59 mg/dL (>40); LDL Cholesterol Calculated 92 mg/dL (<100); Sodium 142 mmol/L (135-145); Total Protein 7.5 g/dL (6.5-8.0); Triglycerides 59 mg/dL (<150)
[2024-11-03 12:39] LABS: Thyroid Stimulating Hormone 0.55 uIU/mL (0.32-4.0)
== END 2024-11-03 10:53 | disposition home or self-care (01) ==
LOC: HO.LAB 10:52
PROVIDERS: PCP Internal Medicine; Visit Provider Internal Medicine
DX: Z13.9 Encounter for screening, unspecified (principal); Z13.220 Encounter for screening for lipoid disorders; Z13.29 Encounter for screening for other suspected endocrine disorder; Z13.0 Encounter for screening for diseases of the blood and blood-forming organs and certain disorders involving the immune mechanism
CPT/HCPCS: 36415; 80053; 80061; 84443; 85025

== ENCOUNTER → 2024-11-05 10:16 | Outpatient (AMB) | payer MEDICARE, SELFPAY | END | disposition home or self-care (01) | PROVIDERS: PCP Internal Medicine; Visit Provider Internal Medicine ==

== ENCOUNTER → 2024-11-05 10:16 | Outpatient (BNVA) | payer MEDICARE, SELFPAY | PROVIDERS: PCP Internal Medicine; Visit Provider Internal Medicine | DX: I10 Essential (primary) hypertension (principal) | CPT/HCPCS: 96127; 99212 ==

== ENCOUNTER 2025-02-08 08:44 | Outpatient (AMB) | payer MEDICARE, SELFPAY ==
--- NOTE | 2025-02-08 08:46 | MHC.PC.OV ---
Vital Signs 02/08/25 08:47 Height 5 ft 4.5 in Weight 251 lb 4 oz BMI 42.5 BP 132/72 Blood Pressure Location Lt brachial Position Sitting Pulse 91 Pulse Source Pulse Oximeter Temp 97.1 F Temp Source Temporal Artery Scan Pulse Oximetry (%) 97 Oxygen Delivery Method Room Air Intake Visit Reasons: DURGA from [facility]/3 mo follow up Intake Note: Patient is here today for DURGA from Dr Chirinos and 3m f/u Cotton Picker Required: No Harvest Crew Supervisor: Present Accompanied by: Spouse Allergies animal dander Allergy (Unknown, Verified 02/08/25 09:00) UNKNOWN cat dander Allergy (Unknown, Verified 02/08/25 09:00) Unknown dog dander Allergy (Unknown, Verified 02/08/25 09:00) Unknown egg Allergy (Unknown, Verified 02/08/25 09:00) Unknown horse dander Allergy (Unknown, Verified 02/08/25 09:00) Unknown peanut [PEANUT] Allergy (Unknown, Verified 02/08/25 09:00) UNKNOWN Medication List - Last Reconciled 02/08/25 by Macey Machuca PA-C atorvastatin 20 mg PO DAILY cholecalciferol (vitamin D3) 25 mcg PO DAILY diltiazem HCl CD (Cardizem CD) 240 mg PO DAILY olanzapine 5 mg PO BEDTIME potassium chloride ER 20 mEq PO DAILY triamterene-hydrochlorothiazid 37.5-25 mg 1 tab PO DAILY Tobacco use date assessed: 02/08/25 Fall risk assessment: No Falls in past year Last assessed Fall Risk: 02/08/25 Dental Screening Dental Screen Date: 11/05/24 HPI DURGA from [facility]/3 mo follow up HPI Details 79-year-old female with past medical history of hyperlipidemia, hypertension, obesity, anxiety last seen 10/[address] Chirinos coming in for transfer of care. Patient has been monitoring the blood pressure at home and typically takes her blood pressure prior to administration of her medication. Blood pressures at home have been mildly elevated but after administration of the medication blood pressure is better control. She regularly follows with gynecology has been managing her mammogram and possibly her bone density. She has no acute concerns today. Mammogram: September 2024 Bone density: Declining believes she is up-to-date Eye exam: Yearly will be due in February Pap smear: Follows with gynecology regularly Colonoscopy: Completed Cologuard last year [facility] Medical History Physical exam Obesity Hypertension Hyperlipidemia Surgical History History of knee replacement procedure of right knee History of knee replacement procedure of left knee Family History Father Lung cancer Mother Bone cancer Daughter No problems noted. Social History Housing: House Alcohol intake: never Patient Tobacco Use Status: Never used Tobacco Tobacco use type: Cigarette e-Cigarette/Vaping Use: Never Used Second Hand Smoke Exposure: No service: No Current occupational status: retired Current occupational exposures/hazards: No Cognitive needs: No Hearing needs: No Vision needs: Yes Questionnaire PHQ-9 Over the last 2 weeks, how often have you been bothered by any of the following problems? 1. Little interest or pleasure in doing things: not at all 2. Feeling down, depressed, or hopeless: not at all 3. Trouble falling or staying asleep, or sleeping too much: not at all 4. Feeling tired or having little energy: not at all 5. Poor appetite or overeating: not at all 6. Feeling bad about yourself - or that you are a failure or have let yourself or your family down: not at all 7. Trouble concentrating on things, such as reading the newspaper or watching television: not at all 8. Moving or speaking so slowly that other people could have noticed. Or the opposite - being so fidgety or restless that you have been moving around a lot more than usual: not at all 9. Thoughts that you would be better off or of hurting yourself in some way: not at all Total score: 0 Depression Screening Interpretation: Negative Depression Screening Done: Yes Source: Developed by Drs. Jai Aiken, Ramona Estevez, Tien Su and colleagues, with an educational luisito from [employer]. Thrive Questionnaire Date Thrive assessed: 02/01/25 I am a: Patient What is your living situation today?: I have a steady place to live Within the past 12 months, did the food you bought not last and you didn't have the money to get more?: Never true Within the past 12 months, did you worry whether your food would run out before you got money to buy more?: Never true Do you have trouble paying for medicines?: No Do you have trouble getting transportation to medical appointments?: No Do you have trouble paying your heating and electricity bill?: No Do you have trouble taking care of your child, family member or friend?: No Do you have trouble with day-to-day activities such as bathing, preparing meals, shopping, managing finances, etc.?: No Are you currently unemployed and looking for a job?: No Are you interested in more education?: No Please select the resources that you would like help with: None Currently or been in a relationship where the following occur: No concerns reported THRIVE Score: 0 AUDIT C Alcohol Use Questionnaire (AUDIT-C) 1. How often do you have a drink containing alcohol?: Never Total Score: 0 ALEXANDRA-7 AMB Questionnaire ALEXANDRA-7 Date ALEXANDRA - 7 assessed: 02/08/25 Feeling nervous, anxious, or on edge: 0 = Not at all Not being able to stop or control worryin = Not at all Worrying too much about different things: 0 = Not at all Trouble relaxin = Not at all Being so restless that it is hard to sit still: 0 = Not at all Becoming easily annoyed or irritable: 0 = Not at all Feeling afraid as if something awful might happen: 0 = Not at all Total ALEXANDRA-7 score (0-4 normal; 5-9 mild; 10-14 moderate; 15-21 severe): 0 Source: Developed by Drs. Jai Aiken, Ramona Estevez, Tien Su and colleagues, with an educational luisito from [employer]. ALEXANDRA-7 Assessment Billing ALEXANDRA-7 Assessment Tool: ALEXANDRA-7 Assessment [id number] Review of Systems Const Denies body aches, Denies chills, Denies fever(s), Denies headache(s) and Denies poor appetite Eyes Reports no additional complaints ENT Denies dysphagia, Denies dizziness, Denies headache(s) and Denies odynophagia Card Denies chest pain, Denies syncope, Denies edema, Denies irregular heart rhythm, Denies lightheadedness and Denies dyspnea Resp Denies cough and Denies dyspnea GI Denies abdominal pain, Denies constipation, Denies dysphagia, Denies diarrhea, Denies nausea, Denies odynophagia and Denies vomiting Reports no additional complaints Musc Reports no additional complaints and Denies abnormal gait Skin/Breast Reports system reviewed and no additional complaints, except as documented Neuro Denies abnormal gait, Denies dizziness, Denies syncope and Denies headache(s) Psych Reports no additional complaints Physical exam (Primary Care) Vital Signs: Last Vital Signs Temp 97.1 F 02/08/25 08:47 Pulse 91 02/08/25 08:47 BP 132/72 02/08/25 08:47 Pulse Ox 97 02/08/25 08:47 Oxygen Delivery Method Room Air 02/08/25 08:47 BMI result Body Mass Index 42.5 Tobacco/Smoking Status: Tobacco use Status Tobacco use date assessed 02/08/25 02/08/25 08:59 Patient Tobacco Use Status Never used Tobacco 02/08/25 08:59 Tobacco use type Cigarette 02/08/25 08:59 e-Cigarette/Vaping Use Never Used 02/08/25 08:59 PHQ-9: PHQ-9 Score PHQ-9: Total score 0 02/08/25 08:59 Depression Screening Interpretation: Negative Thrive Assessment: Date of Thrive Assessment Date Thrive assessed 02/01/25 02/08/25 08:59 Currently or been in a relationship where the following occur: No concerns reported Const General: cooperative, healthy appearing, comfortable and no acute distress Orientation/consciousness: patient oriented x3 HENMT Head: Yes normocephalic Ears: hearing grossly normal bilaterally General nose exam: Normal external nose present Eyes General: appearance normal, both eyes and all related structures Conjunctivae: conjunctivae normal Neck Neck: Yes full ROM and Yes no lymphadenopathy Resp Effort & Inspection: normal respiratory effort Auscultation: clear to auscultation bilaterally, no crackles, no rales, no rhonchi and no wheezes Cardio Rate: regular rate Rhythm: regular rhythm Skin General skin exam: no rashes or lesions noted Neuro General: patient oriented x3 Gait exam (Neuro): Normal gait present Extrem General: Yes normal to inspection, Yes full ROM and No edema Psych Affect: normal affect Attitude: cooperative Insight: Good insight present (Psych) Judgement: Good judgement present (Psych) Coding Level of Care Code Est Pt Level 4 (00094) Diagnoses Elevated fasting glucose R73.01 Anxiety F41.9 Obesity E66.9 Hypertension I10 Hyperlipidemia E78.5 Hypokalemia E87.6 Additional Codes ALEXANDRA-7 Assessment Billing - ALEXANDRA-7 Assessment Tool: ALEXANDRA-7 Assessment 23506 ([id number]) Assessment & Plan Assessment & Plan (1) Elevated fasting glucose: Code(s): R73.01 - Impaired fasting glucose Category: Medical Plan: Fasting sugar elevated at 109 not indicative of diabetes but did advise to avoid high sugar foods. Decrease the amount of carbohydrates such as pasta, bread, rice, and potatoes and limit the amount of sweets. Although fruits are generally healthy they should be eaten in moderation as they are still high in sugar. Ordered for A1c (2) Anxiety: Code(s): F41.9 - Anxiety disorder, unspecified Category: Medical Plan: Patient is currently on olanzapine at bedtime and feels good on this medication. (3) Obesity: Code(s): E66.9 - Obesity, unspecified Category: Medical Plan: Healthy diet and regular exercise is encouraged. (4) Hypertension: Code(s): I10 - Essential (primary) hypertension Category: Medical Plan: Continue on current blood pressure medication. Avoid salt intake and encourage healthy diet and regular exercise. (5) Hyperlipidemia: Code(s): E78.5 - Hyperlipidemia, unspecified Category: Medical Plan: Avoid foods that are high in cholesterol such as red meat, fried foods, eggs and baked goods. Triglyceride goal of less than 150 and LDL goal of less than 130. Continue on atorvastatin 20 (6) Hypokalemia: Code(s): E87.6 - Hypokalemia Category: Medical Plan: Patient is currently on a potassium-sparing diuretic and also on potassium supplementation. She takes the potassium supplementation and frequently and we will occasionally skip days. Plan to switch dosing to every other day and repeat potassium in 2 weeks. Plan This note was constructed using voice recognition software. While every effort has been made to ensure accuracy and sheet metal duct worker supervisor, still areas may have been included sometimes these areas may affect the content or meeting of the given symptoms. Total time spent caring for the patient today was 30 minutes. This includes time spent before the visit reviewing the chart, time spent during the visit, and time spent after the visit and documentation. Orders: Orders Basic Metabolic Panel Today I10 - Essential (primary) hypertension, R73.01 - Impaired fasting glucose Vitamin B12 and Folate Today Z00.00 - Encounter for general adult medical examination without abnormal findings Vitamin D 25-OH Total Today Z00.00 - Encounter for general adult medical examination without abnormal findings Hemoglobin A1c Today R73.01 - Impaired fasting glucose Medications: Refilled atorvastatin 20 mg PO DAILY 90 tabs 0RF triamterene-hydrochlorothiazid 37.5-25 mg 1 tab PO DAILY 90 tabs 0RF potassium chloride ER 20 mEq PO DAILY 90 tabs 0RF olanzapine 5 mg PO BEDTIME 90 tabs 8RF diltiazem HCl CD (Cardizem CD) 240 mg PO DAILY 90 caps 3RF
[2025-02-08 08:47] VITALS: BP 132/72; PULSE 91; TEMP 36.2; O2SAT 97; BMI 42.5
--- OUTSIDE RECORDS SUMMARY | 2025-02-08 09:06 | XMS_ITS ---
Author Organization [facility] jazmyn QuinteroLino Address [address] [place] [address] Care Team Providers Care Master Esthetician Name Role Phone Ed Chirinos MD Primary Care Provider Fer Lora Unavailable [phone] Allergies Allergen (clinical drug ingredient) Drug/Non Drug Allergy documented on EMR Reaction Allergy Type Onset Date Status Cat dander Cat Dander Unknown Allergy Active Dog dander Dog Dander Unknown Allergy Active Eggs or Egg-derived Products Unknown Drug Allergy Active Mold Unknown Allergy Active Tree Nuts Unknown Allergy Active REASON FOR VISIT At Risk Footcare, Painful Nail(s) aggrevated by shoes and causing difficulty standing/walking. Medications Medication SIG (Take, Route, Frequency, Duration) Notes Start Date End Date Status amLODIPine Besylate 10 MG 1 tablet Orall y Once a day Not-Taking Vitamin D (Cholecalciferol) 1000 UNIT 1 capsule Orally Once a day Active Triamterene Active Potassium Chloride 10 MEQ/100ML Intravenous Active OLANZapine 7.5 MG Orally Ac tive Atorvastatin Calcium Active Amoxicillin PRN Active dilTIAZem HCl Active Ammonium Lactate 12 % 1 application to affected area Externally Twice a day to dry areas of skin on feet for 30 days 03/29/2019 Active Social History Tobacco Use: Social History Observation Description Date Details (start date - stop date) Never Smoker NA - NA Tobacco Use/Smoking Question Answer Notes Are you a: nonsmoker Alcohol Screen Question Answer Notes Did you have a drink containing alcohol in the p ast year? No Points 0 Interpretation Negative Tobacco use other than smoking: Question Answer Notes Are you an other tobacco user? No Vital Signs Height 5ft 5in in 07/26/2024 Weight 239 lbs 07/26/2024 BMI 39.77 kg/m2 07/26/2024 Procedures Procedure Date Ordered Date Performed Result Body Sit e 10872-WWOKREY NAIL, 6 OR MORE 07/26/2024 N/A 19073-MWWZ SKIN LESIONS, 2 TO 4 07/26/2024 N/A Encounters Encounter Location Date Provider Diagnosis [facility] [address] [address] 07/26/2024 Fer Greenberg Atherosclerosis of [place] artery of both lower extremities, with unspecified presence of clinical manifestation I70.203 ; Tinea unguium B35.1 ; Pain in right toe(s) M79.674 and Pain in left toe(s) M79.675 Assessments Encounter Date Diagnosis (ICD Code) Assessment Notes Treatment Notes Treatment Clinical Notes Section Notes 07/26/2024 Atherosclerosis of [place] artery of both lower extremities, with unspecified presence of clinical manifestation (ICD-10 - I70.203) 07/26/2024 Tinea unguium (ICD-10 - B35.1) 07/26/2024 Pain in right toe(s) (ICD-10 - M79.674) 07/26/2024 Pain in left toe(s) (ICD-10 - M79.675) Plan Of Treatment Pending Test Test Name Order Date [id number]-[id number] NAIL, 6 OR MORE 07/26/2024 19159-CAYH SKIN LESIONS, 2 TO 4 07/26/20 24 Next Appt Details Follow Up: prn, Reason: Provider Name:Fer Greenberg , 04/11/2025 09:30:00 AM, [address] [facility], [place] [address], [place], [address], Procedure Notes * Category Sub-Category Detail Notes Debride Nail 6-10 Nail debridement Performance o f this nail treatment by a nonprofessional would put this patients foot and overall health at risk. Therefore, nail debridement was performed extensively to reduce/remove overall nail length, girth, thickness, subungual debris, and necrotic tissue, by manual and/or electrical means through the use of a nail nipper and/or dremel-type crankshaft grinder, to a more viable healthy nail plate or bed tissue 6-10. Silver nitrate used for any petechial bleeding as necessary. Definitive antifungal treatment options have been reviewed and discussed with the patient. The patient chooses, no pharmaceutical tx - 89945 Keratoma Treatment Parring or Cutting o f Benign Hyperkeratotic Lesion(s) (-56) 2-4 Lesions - The Benign hyperkeratotic lesions, as described above were pared, and/or cut utilizing a sterile 15 blade, tissue nippers, and/or dremel - 57221 , Q8 Progress Notes * Mini BYRNE ADOB:1945 (78 yo F)Acc No.[id number]:07/26/2024 Progress Note Patient:?Mini Byrne A Provider:?Fer Greenberg DPM :1945???Age:78 Y???Sex:Female D ate:07/26/2024 Address:[address] [place], [place] [id number] Pcp:Ed Chirinos MD Subjective: * Chief Complaints: * ???At Risk FootcarePainful N ail(s) aggrevated by shoes and causing difficulty standing/walking. * HPI: ???At Risk footcare:?Pt States Last PCP Visit:?Date?04/26/2024 * ROS:?General/Constitutional:?Nausea?denies.?Vomiting?denies.?Hunger Thirst?denies.?Loss appetite?denies.?Chills?denies.?Fatigue?denies.?Fever?denies.?Night Sweats?denies.?Unexplained weight loss?denies.?Unexplained weight gain?denies.?HEENTM:?Dentures?denies.?Dizziness?denies.?Glasses/contacts?admits.?Retinopathy?de nies.?Blurred/double vision?denies.?TMJ?denies.?Discharge/drainage?denies.?Implants?denies.?Sore throat?denies.?Dental implants?denies.?Hard of hearing ?denies.?Difficulty chewing/swallowing/speaking?denies.?Nose bleeds?denies.?Sore mouth?denies.?Respiratory:?On Oxygen?denies.?Pneumonia/pleurisy?denies.?Bronchitis?denies.?Emphysema?denies.?C oughing?denies.?Cough blood?denies.?Shortness of breath?denies.?Wheezing?denies.?Cardiovascular:?Pacemaker?denies.?MVP?denies.?WPW?denies.?CHF?denies.?Heart attack?denies.?Septal defect?denies.?Rapid beat?denies.?Chest pain ?denies.?Atrial Fib.?denies.?Murmur/Palpitations?denies.?Gastrointestinal:?Hemorrhoids?denies.?Stomach/Abdominal pain?denies.?Dark blood stool?denies.?Irritable bowel ?denies.?Constipation?denies.?Diarrhea?denies.?Hematology:?Swelling?denies.?Clots?denies.?Varicose Veins?denies.?Bruising?denies.?Bleeding problem?denies.?Genitourinary:?Blood urine?denies.?Frequent/Painfu/urination/bladder control?denies.?Kidney stones?denies.?Infection (UTI)?denies.?Nephropathy?denies.?sex trans dis (STD)?denies.?Prostate?denies.?Musculoskeletal:?Hammertoes?admits.?Bunions?denies.?Back Pain?denies.?Muscle Cramps/ Resting?denies.?Muscle cramps / walking?denies.?Generalized aches and pains?denies.?Weakness?denies.?Integ.:?Warren?denies.?Scars?denies.?Corns/calluses?admits.?Ingrown nails?admits.?Painful nails?admits.?Open Sores?denies.?Rashes?denies.?Neurologic:?Difficulty sleeping?denies.?Brain disorder?denies.?Numbness?denies.?Balance trouble?denies.?Confusion?denies.?Fainting/blackouts?denies.?Tingling?denies.?Tr emors?denies.? * Medical History:? * Surgical History:?left knee replacement 2010right knee replacement 2009 * Hospitalization/Major Diagno stic Procedure:?No Hospitalization History. * Family History:?Mother: dece ased.?Father: .?Spouse: alive, diagnosed with Diabetic - NIDDM, Unspecified essential hypertension.? * Social History:?Tobacco Use:?Tobacco Use/Smoking?Are you a:?nonsmoker ?Tobacco use other than smoking?Are you an other tobacco user??No ???Drugs/Alcohol:?Drugs?Have you used drugs other than those for medical reasons in the past 12 months??No ?Alcohol Screen?Did you have a drink containing alcohol in the past year??No ?Points?0 ?Interpretation?Negative ???Miscellaneous:?Caffeine: yes, frequency:, 2-3 cups per day. ?Children: yes, 1. ?no Exercise. ?Marital status: . ?Occupation: Retired. * Medications:?TakingAmoxicill in , Notes: PRNAtorvastatin Calcium Ammonium Lactate 12 % Lotion 1 application to affected area Externally Twice a day to dry areas of skin on feetdilTIAZem HCl OLANZapine 7.5 MG Tablet Orally Potassium Chloride 10 MEQ/100ML Solution Intravenous Triamterene Vitamin D (Cholecalciferol) 1000 UNIT Capsule 1 capsule Orally Once a dayTaking Amoxicillin , Notes: PRNTaking Atorvastatin Calcium Taking Ammonium Lactate 12 % Lotion 1 application to affected area Externally Twice a day to dry areas of skin on feetTaking dilTIAZem HCl Taking OLANZapine 7.5 MG Tablet Orally Taking Potassium Chloride 10 MEQ/100ML Solution Intravenous Taking Triamterene Taking Vitamin D (Cholecalciferol) 1000 UNIT Capsule 1 capsule Orally Once a dayNot-Taking/PRNamLODIPine Besylate 10 MG Tablet 1 tablet Orally Once a dayMedication List reviewed and reconciled with the patientNot-Taking/PRN amLODIPine Besylate 10 MG Tablet 1 tablet Orally Once a dayMedication List reviewed and reconciled with the patient * Allergies:?Dog DanderCat Basil derTree NutsEggs or Egg-derived ProductsMoldyes[Allergies Verified] Objective: * Vitals:?Ht: 5ft 5in, Wt:239, BMI: 39.77, Shoe size:9.5-10, Ht-cm: 165.1 cm, Wt- k.41 kg. * Examination: ???Vascular: ?DP PULSES(B):? 1/4, B/L.?PT PULSES(B):? 0/4, B/L.?CAPILLARY FILL TIME:? delayed, all digits, B/L.?TROPHIC CONDITION-TEXTURE/ELASTICITY/TURGOR/HAIR GROWTH(B):? decreased, with sparse to absent hair growth, B/L.?TEMPERTURE GRADIENT(C):? decreased, cool to cool, proximal to distal, B/L.?PIGMENTATION:? brawny, B/L.?EDEMA(C):?3/4, non-pitting, without aching pain, B/L, Leg(s), Ankle(s), Feet.?CLAUDICATION(C):?denies, B/L.?REST PAIN:?denies, B/L.?Nails: ?NAILS are:?Elongated, overgrown, dystrophic, lytic, greater than 3mm thick, discolored and friable with crumbly malodorous subungual debris, with pain on palpation, 1-5 Left foot, T5, T7, T8, T9.?Dermatologic: ?SKIN FINDINGS:? Skin exam reveals Keratotic lesion(s) located at, Dorsal, PIPJ, T9, Heel(s), B/L .? Assessment: * Assessment: 1.?Tinea unguium - B35.1?2.? Atherosclerosis of [place] artery of both lower extremities, with unspecified presence of clinical manifestation - I70.203 (Primary)?3.?Pain in right toe(s) - M79.674?4.?Pain in left toe(s) - M79.675? Plan: * Treatment: 2.?Tinea unguium?Procedure: [id number]-[id number] NAIL, 6 OR MORE * Procedures:?Debride Nail 6-10:?Nail debridement?Performance of this nail treatment by a nonprofessional would put this patients foot and overall health at risk. Therefore, nail debridement was performed extensively to reduce/remove overall nail length, girth, thickness, subungual debris, and necrotic tissue, by manual and/or electrical means through the use of a nail nipper and/or dremel-type crankshaft grinder, to a more viable healthy nail plate or bed tissue 6-10. Silver nitrate used for any petechial bleeding as necessary. Definitive antifungal treatment options have been reviewed and discussed with the patient. The patient chooses, no pharmaceutical tx - 63011.?Keratoma Treatment:?Parring or Cutting of Benign Hyperkeratotic Lesion(s)?(-56) 2-4 Lesions - The Benign hyperkeratotic lesions, as described above were pared, and/or cut utilizing a sterile 15 blade, tissue nippers, and/or dremel - 91606 , Q8.? * Procedure Codes:?08206 DEBRI DE NAIL, 6 OR MORE, Modifiers: XS 34031 TRIM SKIN LESIONS, 2 TO 4, Modifiers: XS , Q8 * Follow Up:?prn * Images: * Sign off status: Completed true * Provider:?Fer Greenberg DPM Date:?2023 Generated for Yadira bennett/Peggy/Tia on:?02/08/2025 09:06 AM EDT History and Physical Notes * HPI (History of Present Illness) Category Sub-Category Detail Notes Category Not es At Risk footcare Pt States Last PCP Visit: Date: 4 Examination Category Sub-Category Detail Notes Category Not es Dermatologic SKIN FINDINGS: Skin exam reveal s Keratotic lesion(s) located at, Dorsal, PIPJ, T9, Heel(s), B/L Vascular DP PULSES (B): 1/4, B/L PT PULSES (B): 0/4, B/L CAPILLARY FILL TIME: delayed, all digits , B/L TEMPERTURE GRADIENT (C): decreased, cool to cool, proximal to distal, B/L TROPHIC CONDITION-TEXTURE/ELASTICITY/TURGOR/HAIR GROWTH (B): decreased, with sparse to absent hair gr owth, B/L EDEMA (C): 3/4, non-pitting, wi thout aching pain, B/L, Leg(s), Ankle(s), Feet CLAUDICATION (C): denies, B/L REST PAIN: denies, B/L PIGMENTATION: brawny, B/L Nails NAILS are: Elongated, overg rown, dystrophic, lytic, greater than 3mm thick, discolored and friable with crumbly malodorous subungual debris, with pain on palpation, 1-5 Left foot, T5, T7, T8, T9
--- OUTSIDE RECORDS SUMMARY | 2025-02-08 09:06 | XMS_ITS ---
Author Organization [facility] QuinteroLino Address [address] [place] [address] Care Team Providers Care Software Design Manager Name Role Phone Ed Chirinos MD Primary Care Provider Fer Lora Unavailable [phone] Allergies Allergen (clinical drug ingredient) Drug/Non Drug Allergy documented on EMR Reaction Allergy Type Onset Date Status Cat dander Cat Dander Unknown Allergy Active Dog dander Dog Dander Unknown Allergy Active Eggs or Egg-derived Products Unknown Drug Allergy Active Mold Unknown Allergy Active Tree Nuts Unknown Allergy Active REASON FOR VISIT At Risk Footcare, Painful Nail(s) aggrevated by shoes and causing difficulty standing/walking., Skin Problem Medications Medication SIG (Take, Route, Frequency, Duration) Notes Start Date End Date Status Ciclopirox Olamine 0.77 % 1 application Externally Twice a day to skin of feet including between the toes for 30 days Active amLODIPine Besylate 10 MG 1 tablet Orall y Once a day Not-Taking Vitamin D (Cholecalciferol) 1000 UNIT 1 capsule Orally Once a day Active Triamterene Active Potassium Chloride 10 MEQ/100ML Intravenous Active OLANZapine 7.5 MG Orally Ac tive dilTIAZem HCl Active Atorvastatin Calcium Active Amoxicillin PRN Active Social History Tobacco Use: Social History Observation Description Date Details (start date - stop date) Never Smoker NA - NA Alcohol Screen Question Answer Notes Did you have a drink containing alcohol in the p ast year? No Points 0 Interpretation Negative Tobacco use other than smoking: Question Answer Notes Are you an other tobacco user? No Tobacco Control (Standard) Question Answer Notes Tobacco use: Nonsmoker Additional Findings: Tobacco non-user Current no nsmoker Vital Signs Height 5ft 5in in 10/25/2024 Weight 240 lbs 10/25/2024 BMI 39.93 kg/m2 10/25/2024 Blood pressure systolic 126 mm Hg 10/25/19 Blood pressure diastolic 82 mm Hg 025 Procedures Procedure Date Ordered Date Performed Result Body Sit e 95652-AHZENKP NAIL, 6 OR MORE 10/25/2024 N/A 73752-SADP SKIN LESIONS, 2 TO 4 10/25/2024 N/A Encounters Encounter Location Date Provider Diagnosis [facility] [place] [address] [place] [id number] 10/25/2024 Fer Greenberg Atherosclerosis of [place] artery of both lower extremities, with unspecified presence of clinical manifestation I70.203 ; Tinea unguium B35.1 ; Pain in right toe(s) M79.674 ; Pain in left toe(s) M79.675 and Tinea pedis of both feet B35.3 Assessments Encounter Date Diagnosis (ICD Code) Assessment Notes Treatment Notes Treatment Clinical Notes Section Notes 10/25/2024 Atherosclerosis of [place] artery of both lower extremities, with unspecified presence of clinical manifestation (ICD-10 - I70.203) 10/25/2024 Tinea unguium (ICD-10 - B35.1) 10/25/2024 Pain in right toe(s) (ICD-10 - M79.674) 10/25/2024 Pain in left toe(s) (ICD-10 - M79.675) 10/25/2024 Tinea pedis of both feet (ICD-10 - B35.3) Plan Of Treatment Medication Medication Name Sig Start Date Stop Date Notes Ciclopirox Olamine 0.77 % 1 application Externally Twice a day to skin of feet including between the toes for 30 days Pending Test Test Name Order Date [id number] NAIL, 6 OR MORE 10/25/2024 31785-QTPP SKIN LESIONS, 2 TO 4 10/25/19 25 Next Appt Details Follow Up: prn, Reason: Provider Name:Fer Greenberg , 04/11/2025 09:30:00 AM, [address] [facility], [address] [facility], [place], [address], Procedure Notes * Category Sub-Category Detail Notes Debride Nail 6-10 Nail debridement Due to the cl inical pathology outlined in the exam findings, performance of this nail treatment is medically necessary as its management by an unskilled/untrained nonprofessional would put this patients foot and overall health at risk. Therefore, debridement to affected nail(s), as described in exam ( TA, T1, T2, T3, T4, T5, T7, T8, T9 ), was performed exclusively by the physician of record to reduce/remove overall nail length, girth, thickness, subungual debris, and necrotic tissue, by manual and/or electrical means through the use of a nail nipper and/or dremel-type thread grinder tool, to a more viable healthy nail plate or bed tissue 6-10 nails in total. Silver nitrate was used for any petechial bleeding as necessary. Definitive antifungal treatment options, both pharmaceutical and surgical, have been reviewed and discussed with the patient. The patient solely prefers the use of intermittent/as needed professional debridement services for their nail condition and understands the need for additional periodic treatments to maintain effectiveness in symptomatic relief - 32985 Keratoma Treatment Parring or Cutting o f Benign Hyperkeratotic Lesion(s) (-56) 2-4 Lesions - Due to the at risk nature of the patients medical condition as documented in the exam findings, performance of this keratoderma treatment is medically necessary as its management by an unskilled/untrained nonprofessional would put this patients foot and overall health at risk. Therefore, the benign hyperkeratotic lesions, ( 3 ) in total, locations as stated and described in the exam ( Dorsal, PIPJ, T9,Plantar, Heel(s), B/L ), were pared, and/or cut utilizing a sterile 15 blade, tissue nippers, and/or power dremel instrumentation by the physician of record - 66207, Q8 Progress Notes * Melonie BYRNEetta ADOB:1945 (78 yo F)Acc No.[id number]:10/25/2024 Progress Note Patient:Mini CASTELLANO Provider:?Fer Greenberg DPM :1945???Age:78 Y???Sex:Female D ate:10/25/2024 Address:[address] [id number] Pcp:Ed Chirinos MD Subjective: * Chief Complaints: * ???At Risk FootcarePainful N ail(s) aggrevated by shoes and causing difficulty standing/walking.Skin Problem * HPI: ???At Risk footcare:?Pt States Last PCP Visit:?Date?07/30/2024 ???Skin problems:?Nature:?scaling , redness.?Location:?B/L .?Duration:?several days.?Course:?worse.? * ROS:?General/Constitutional:?Nausea?denies.?Vomiting?denies.?Hunger Thirst?denies.?Loss appetite?denies.?Chills?denies.?Fatigue?denies.?Fever?denies.?Night Sweats?denies.?Unexplained weight loss?denies.?Unexplained [...] Unspecified essential hypertension.? * Social History:?Tobacco Use:?Tobacco use other than smoking?Are you an other tobacco user??No ?Tobacco Control (Standard)?Tobacco use:?Nonsmoker ?Additional Findings: Tobacco non-user?Current nonsmoker ???Drugs/Alcohol:?Drugs?Have you used drugs other than those for medical reasons in the past 12 months??No ?Alcohol Screen?Did you have a drink containing alcohol in the past year??No ?Points?0 ?Interpretation?Negative ???Miscellaneous:?Caffeine: yes, frequency:, 2-3 cups per day. ?Children: yes, 1. ?Exercise: no. ?Marital status: . ?Occupation: Retired. * Medications:?TakingAmoxicill in , Notes to Pharmacist: PRNAtorvastatin Calcium dilTIAZem HCl OLANZapine 7.5 MG Tablet Orally Potassium Chloride 10 MEQ/100ML Solution Intravenous Triamterene Vitamin D (Cholecalciferol) 1000 UNIT Capsule 1 capsule Orally Once a day Taking Amoxicillin , Notes to Pharmacist: PRNTaking Atorvastatin Calcium Taking dilTIAZem HCl Taking OLANZapine 7.5 MG Tablet Orally Taking Potassium Chloride 10 MEQ/100ML Solution Intravenous Taking Triamterene Taking Vitamin D (Cholecalciferol) 1000 UNIT Capsule 1 capsule Orally Once a day Not-Taking/PRNamLODIPine Besylate 10 MG Tablet 1 tablet Orally Once a day Medication List reviewed and reconciled with the patientNot-Taking/PRN amLODIPine Besylate 10 MG Tablet 1 tablet Orally Once a day Medication List reviewed and reconciled with the patient * Allergies:?Dog DanderCat Basil derTree NutsEggs or Egg-derived ProductsMoldyes[Allergies Verified] Objective: * Vitals:?Ht: 5ft 5in, Wt: 240 , BMI: 39.93, Shoe size: 9.5-10, BP: 126/82 mm Hg, Ht-cm: 165.1 cm, Wt-k.86 kg. * Examination: ???Vascular: ?DP PULSES (B):? 1/4, B/L.?PT PULSES (B):? 0/4, B/L.?CAPILLARY FILL TIME:? delayed, all digits, B/L.?TROPHIC CONDITION-TEXTURE/ELASTICITY/TURGOR/HAIR GROWTH (B):? decreased, with sparse to absent hair growth, B/L.?TEMPERTURE GRADIENT (C):? decreased, cool to cool, proximal to distal, B/L.?PIGMENTATION:? brawny, B/L.?EDEMA (C):?3/4, non-pitting, without aching pain, B/L, Leg(s), Ankle(s), Feet.?CLAUDICATION (C):?denies, B/L.?REST PAIN:?denies, B/L.?Nails: ?NAILS are:?Elongated, overgrown, dystrophic, lytic, greater than 3mm thick, discolored and friable with crumbly malodorous subungual debris, with pain on palpation, TA, T1, T2, T3, T4, T5, T7, T8, T9.?Dermatologic: ?SKIN FINDINGS:? Skin exam reveals Keratotic lesion(s) located at, Dorsal, PIPJ, T9,Plantar, Heel(s), B/L , Skin shows sign(s) of, erythema, scaling, in a moccasin fashion, no fissure(s) present, B/L.? Assessment: * Assessment: 1.?Tinea unguium - B35.1???2 .?Atherosclerosis of [place] and [place] artery of both lower extremities, with unspecified presence of clinical manifestation - I70.203 (Primary)???3.?Pain in right toe(s) - M79.674???4.?Pain in left toe(s) - M79.675 ??5.?Tinea pedis of both feet - B35.3???Specify :Acute problem, Uncomplicated (3),Rx drug management (4)??? Plan: * Treatment: 2.?Tinea unguium?Procedure: 11778-XNKBXGB NAIL, 6 OR MORE 3.?Tinea pedis of both feet? Start Ciclopirox Olamine Cream, 0.77 %, 1 application, Externally, Twice a day to skin of feet including between the toes, 30 days, 120, Refills 3.?? * Procedures:?Debride Nail 6-10:?Nail debridement?Due to the clinical pathology outlined in the exam findings, performance of this nail treatment is medically necessary as its management by an unskilled/untrained nonprofessional would put this patients foot and overall health at risk. Therefore, debridement to affected nail(s), as described in exam (??TA, T1, T2, T3, T4,?T5,?T7,?T8,?T9?), was performed exclusively by the physician of record to reduce/remove overall nail length, girth, thickness, subungual debris, and necrotic tissue, by manual and/or electrical means through the use of a nail nipper and/or dremel-type thread grinder tool, to a more viable healthy nail plate or bed tissue 6-10 nails in total. Silver nitrate was used for any petechial bleeding as necessary. Definitive antifungal treatment options, both pharmaceutical and surgical, have been reviewed and discussed with the patient. The patient solely prefers the use of intermittent/as needed professional debridement services for their nail condition and understands the need for additional periodic treatments to maintain effectiveness in symptomatic relief - 63462.?Keratoma Treatment:?Parring or Cutting of Benign Hyperkeratotic Lesion(s)?(-56) 2-4 Lesions - Due to the at risk nature of the patients medical condition as documented in the exam findings, performance of this keratoderma treatment is medically necessary as its management by an unskilled/untrained nonprofessional would put this patients foot and overall health at risk. Therefore, the benign hyperkeratotic lesions, ( 3 ) in total, locations as stated and described in the exam (?Dorsal,?PIPJ,?T9,Plantar,?Heel(s),?B/L?), were pared, and/or cut utilizing a sterile 15 blade, tissue nippers, and/or power dremel instrumentation by the physician of record - 68422, Q8.? * Procedure Codes:?38644 DEBRI DE NAIL, 6 OR MORE, Modifiers: XS 83083 TRIM SKIN LESIONS, 2 TO 4, Modifiers: XS , Q8 * Preventive Medicine:? ??Counseling:?Discussion:?-13: Office or other outpatient visit for the evaluation and management of an established patient, which required a medically appropriate history and/or examination and LOW level of DECISION MAKING for: 1 STABLE ACUTE UNCOMPLICATED PROBLEM, 2 OR MORE MINOR PROBLEMS, OR 1 STABLE CHRONIC PROBLEM, THAT POSE(S) A LOW RISK FOR MORBIDITY/MORTALITY. The visit on the day of the encounter encompassed interpreting the data and educating the patient as to the nature of their condition, treatment options available according to their individual PMH, meds, allergies, and overall health/living conditions, as well as any potential risks or complications that may occur from a failure to adhere to, and participate in, the recommended course of therapy. The discussion included a complete verbal, and/or written explanation of the examination results, any x-rays taken, the proposed diagnosis, and outline of the treatment plan. A schedule for future care needs was also explained. The patient verbalized an understanding of the instructions at this time and agreed to be an active participant in their treatment. If the patient should think of any questions or concerns after the visit, I have encouraged the patient to call the office.?Tinea Pedis:?The patient was counseled on the diagnosis, potential etiologies, and treatment options for their skin condition. We discussed the risks and benefits of each option from performing no treatment, to utilizing OTC topical skin creams, prescription topical creams, customized compounded topical medications, and, if necessary, to utilize oral antifungal therapy. We discussed the advantages and disadvantages of each possible treatment and importance for adherence to all the recommended therapies for optimum success and avoid potential complications such as open sore/infection/possible hospitalization. We discussed the potential effectiveness of each topical preparation as well as each ones possible side effects and/or patient medication interactions if oral therapy is selected. Patient questions re: the advantages and disadvantages of each treatment choice, medication use/dosage, successful outcomes, and application consistency were reviewed and the patient verbalized that all answers were clearly understood. The patient was told they can help alleviate symptoms by utilizing moisture absorbant innersoles with activated charcoal and baking soda, applying antifungal sprays daily, aerating toe web spaces at night by putting cotton or lambs wool between the toes, alternating shoe gear daily if possible so they can dry out, changing socks at least once during the day, wearing well-ventilated shoes or sandals. The patient has decided to apply antifungal skin creams to their feet as directed. Rx was sent to their pharmacy at the time of visit.? ??Screening/Special Tests:?Fall Risk?Screening:?No falls in the past year ?FALLS: Screening for Future Fall Risk?Have you had any falls with injury in the past year??No * Follow Up:?prn * Images: * Sign off status: Completed true * Provider:?Fer Greenberg DPM Date:?2024 Generated for Yadira bennett/Peggy/Tia on:?02/08/2025 09:06 AM EDT History and Physical Notes * HPI (History of Present Illness) Category Sub-Category Detail Notes Category Not es Skin problems Nature: scaling , redness Location: B/L Duration: several days Course: worse At Risk footcare Pt States Last PCP Visit: Date: 4 Examination Category Sub-Category Detail Notes Category Not es Dermatologic SKIN FINDINGS: Skin exam reveal s Keratotic lesion(s) located at, Dorsal, PIPJ, T9,Plantar, Heel(s), B/L , Skin shows sign(s) of, erythema, scaling, in a moccasin fashion, no fissure(s) present, B/L Vascular DP PULSES (B): 1/4, B/L [...] malodorous subungual debris, with pain on palpation, TA, T1, T2, T3, T4, T5, T7, T8, T9
--- OUTSIDE RECORDS SUMMARY | 2025-02-08 09:07 | XMS_ITS ---
Author Organization [facility] L[facility] Address [address] [place] [address] Care Team Providers Care Network Controller Name Role Phone Ed Chirinos MD Primary Care Provider Fer Lora Unavailable [phone] Allergies Allergen (clinical drug ingredient) Drug/Non Drug [...] 1 capsule Orally Once a day Active Ciclopirox Olamine 0.77 % 1 application Externally Twice a day to skin of feet including between the toes for 30 days Active Potassium Chloride 10 MEQ/100ML Intravenous Active Triamterene Active dilTIAZem HCl Active OLANZapine 7.5 MG Orally Ac tive Amoxicillin PRN Active Atorvastatin Calcium Active Social History Tobacco Use: Social History [...] nsmoker Vital Signs Height 5ft 5in in 01/24/2025 Weight 240 lbs 01/24/2025 BMI 39.93 kg/m2 01/24/2025 Blood pressure systolic 127 mm Hg 01/25/20 25 Blood pressure diastolic 70 mm Hg 025 Procedures Procedure Date Ordered Date Performed Result Body Sit e 87476-IUZNBFC NAIL, 6 OR MORE 01/24/2025 N/A 32297-DHYS SKIN LESIONS, 2 TO 4 01/24/2025 N/A Encounters Encounter Location Date Provider Diagnosis [facility] [place] [address] [facility] [address] [place] [address] 01/24/2025 Ferbill Keitaier Atherosclerosis of [place] artery of both lower extremities, with unspecified presence of clinical manifestation I70.203 ; Tinea unguium B35.1 ; Pain in right toe(s) M79.674 ; Pain in left toe(s) M79.675 and Tinea pedis of both feet B35.3 Assessments Encounter Date Diagnosis (ICD Code) Assessment Notes Treatment Notes Treatment Clinical Notes Section Notes 01/24/2025 Atherosclerosis of [place] artery of both lower extremities, with unspecified presence of clinical manifestation (ICD-10 - I70.203) 01/24/2025 Tinea unguium (ICD-10 - B35.1) 01/24/2025 Pain in right toe(s) (ICD-10 - M79.674) 01/24/2025 Pain in left toe(s) (ICD-10 - M79.675) 01/24/2025 Tinea pedis of both feet (ICD-10 - B35.3) Plan Of Treatment Pending Test Test Name Order Date [id number] NAIL, 6 OR MORE 01/24/2025 27225-PSUC SKIN LESIONS, 2 TO 4 01/25/20 25 Next Appt Details Follow Up: prn, Reason: Provider Name:Fer Jim RomeroDionicio , 04/11/2025 09:30:00 AM, [address] [facility], [address], [place], [address], Procedure Notes * Category Sub-Category Detail Notes [...] use of a nail nipper and/or dremel-type chisel grinder, to a more viable healthy nail [...] to maintain effectiveness in symptomatic relief - 40847 Keratoma Treatment Parring or Cutting o f Benign Hyperkeratotic Lesion(s) (-56) 2-4 Lesions - Due to the at risk nature of the patients medical condition as documented in the exam findings, performance of this keratoderma treatment is medically necessary as its management by an unskilled/untrained nonprofessional would put this patients foot and overall health at risk. Therefore, the benign hyperkeratotic lesions, (3) in total, locations as stated and described in the exam ( Dorsal, PIPJ, T9,Plantar, Heel(s), B/L ), were pared, and/or cut utilizing a sterile 15 blade, tissue nippers, and/or power dremel instrumentation by the physician of record - 60099, Q8 Progress Notes * Mini BYRNE ADOB:1945 (79 yo F)Acc No.[id number]:01/24/2025 Progress Note Patient:?Melonie BYRNEdionte Elias Provider:?Fer Greenberg DPM :1945???Age:79 Y???Sex:Female D ate:01/24/2025 Address:[facility] [address], [id number] Pcp:Ed Chirinos MD Subjective: * Chief Complaints: * ???At Risk FootcarePainful N ail(s) aggrevated by shoes and causing difficulty standing/walking.Skin Problem * HPI: ???At Risk footcare:?Pt States Last PCP Visit:?Date?07/30/2024 ???Skin problems:?Treatments:?Medication (Ciclopirox Olamine 0.77 Cream), states adherence to recommended treatment application.? * ROS:?General/Constitutional:?Nausea?denies.?Vomiting?denies.?Hunger Thirst?denies.?Loss appetite?denies.?Chills?denies.?Fatigue?denies.?Fever?denies.?Night Sweats?denies.?Unexplained weight loss?denies.?Unexplained [...] Capsule 1 capsule Orally Once a day Ciclopirox Olamine 0.77 % Cream 1 application Externally Twice a day to skin of feet including between the toes Taking Amoxicillin , Notes to Pharmacist: PRNTaking Atorvastatin Calcium Taking dilTIAZem HCl Taking OLANZapine 7.5 MG Tablet Orally Taking Potassium Chloride 10 MEQ/100ML Solution Intravenous Taking Triamterene Taking Vitamin D (Cholecalciferol) 1000 UNIT Capsule 1 capsule Orally Once a day Taking Ciclopirox Olamine 0.77 % Cream 1 application Externally Twice a day to skin of feet including between the toes Not-Taking/PRNamLODIPine Besylate 10 MG Tablet 1 tablet Orally Once a day Medication List reviewed and reconciled with the patientNot-Taking/PRN amLODIPine Besylate 10 MG Tablet 1 tablet Orally Once a day Medication List reviewed and reconciled with the patient * Allergies:?Dog DanderCat Basil derTree NutsEggs or Egg-derived ProductsMoldyes[Allergies Verified] Objective: * Vitals:?Ht: 5ft 5in, Wt: 240 , BMI: 39.93, Shoe size: 9.5-10, BP: 127/70 mm Hg, Ht-cm: 165.1 cm, Wt-k.86 kg. [...] Dorsal, PIPJ, T9,Plantar, Heel(s), B/L , Skin shows?approximately 90-95 percent LESS, sign(s) of, erythema, scaling, in a moccasin fashion, no fissure(s) present, B/L.? Assessment: * Assessment: 1.?Tinea unguium - B35.1???2 .?Atherosclerosis of [place] artery of both lower extremities, with unspecified presence of clinical manifestation - I70.203 (Primary)???Specify :Q8???3.?Pain in right toe(s) - M79.674???4.?Pain in left toe(s) - M79.675???5.?Tinea pedis of both feet - B35.3???Specify :Acute problem, Stable, Response to treatment - Improvement??? Plan: * Treatment: 2.?Tinea unguium?Procedure: 43787-XSYCCZS NAIL, 6 OR MORE * Procedures:?Debride Nail 6-10:?Nail debridement?Due to the [...] use of a nail nipper and/or dremel-type chisel grinder, to a more viable healthy nail [...] to maintain effectiveness in symptomatic relief - 99060.?Keratoma Treatment:?Parring or Cutting of Benign Hyperkeratotic Lesion(s)?(-56) 2-4 Lesions - Due to the at risk nature of the patients medical condition as documented in the exam findings, performance of this keratoderma treatment is medically necessary as its management by an unskilled/untrained nonprofessional would put this patients foot and overall health at risk. Therefore, the benign hyperkeratotic lesions, (3) in total, locations as stated and described in the exam ( Dorsal, PIPJ, T9,Plantar, Heel(s), B/L ), were pared, and/or cut utilizing a sterile 15 blade, tissue nippers, and/or power dremel instrumentation by the physician of record - 86244, Q8.? * Procedure Codes:?10666 DEBRI DE NAIL, 6 OR MORE, Modifiers: XS 17050 TRIM SKIN LESIONS, 2 TO 4, Modifiers: XS , Q8 * Preventive Medicine:? ??Counseling:?Discussion:?-12: Office or other outpatient visit for the evaluation and management of an established patient, which required a medically appropriate history and/or examination and STRAIGHTFORWARD level of MEDICAL DECISION MAKING, 1 SELF-LIMITED OR MINOR PROBLEM, MINIMAL- NO AMOUNT/COMPLEXITY OF DATA TO BE REVIEWED/ANALYZED, AND MINIMAL RISK OF COMPLICATION/MORBIDITY. The visit on the day of the [...] encouraged the patient to call the office.?Tinea Pedis:?Given recent successful results to treatment, The patient is to cont the rx cream as directed.? ??Screening/Special Tests:?Fall Risk?Screening:?No falls in the past year ?FALLS: Screening for Future Fall Risk?Have you had any falls with injury in the past year??No * Follow Up:?prn * Images: * Sign off status: Completed true * Provider:?Fer Greenberg DPM Date:?2024 Generated for Yadira bennett/Peggy/eTjesussmitting on:?02/08/2025 09:06 AM EDT History and Physical Notes * HPI (History of Present Illness) Category Sub-Category Detail Notes Category Not es Skin problems Treatments: Medication (Cicl opirox Olamine 0.77 Cream), states adherence to recommended treatment application At Risk footcare Pt States Last PCP Visit: Date: 07/30/2024 Examination Category Sub-Category Detail Notes Category Not es Dermatologic SKIN FINDINGS: Skin exam reveal s Keratotic lesion(s) located at, Dorsal, PIPJ, T9,Plantar, Heel(s), B/L , Skin shows approximately 90-95 percent LESS, sign(s) of, erythema, scaling, in a moccasin [...]
--- OUTSIDE RECORDS SUMMARY | 2025-02-08 09:07 | XMS_ITS | Patient Health Record ---
Author Organization [facility] Address [address] [place] [address] Care Team Providers Care Professor Of Apologetics Name Role Phone Ed Chirinos MD Primary Care Provider Fer Lora Unavailable [phone] Allergies Allergen (clinical drug ingredient) Drug/Non Drug Allergy documented on EMR Reaction Allergy Type Onset Date Status Cat dander Cat Dander Unknown Allergy Active Dog dander Dog Dander Unknown Allergy Active Eggs or Egg-derived Products Unknown Drug Allergy Active Mold Unknown Allergy Active Tree Nuts Unknown Allergy Active Reason For Referral No Information Medications Medication SIG (Take, Route, Frequency, Duration) [...] tive Amoxicillin PRN Active Atorvastatin Calcium Active Immunizations Vaccine Route Administration Date Status Comme nts COVID-19 Pfizer BioNTech Vaccine Unknown 11/30/2020 Administered COVID-19 Pfizer BioNTech Vaccine Unknown 12/21/2020 Administered 1st 11/30/2020 Social History Tobacco Use: Social History Observation [...] Additional Findings: Tobacco non-user Current no nsmoker Problems Problem Type SNOMED Code ICD Code Onset Dates Problem Status W/U Status Risk Notes Problem Atherosclerosis of [place] arteries of the extremities (824182005194511) Atherosclerosis of [place] artery of both lower extremities, with unspecified presence of clinical manifestation (I70.203) Active confirmed Vital Signs Blood pressure diastolic 70 mm Hg 01/24/2025 Height 5ft 5in in 01/24/2025 Blood pressure systolic 127 mm Hg 01/24/2025 Weight 240 lbs 01/24/2025 BMI 39.93 kg/m2 01/24/2025 Procedures Procedure Date Ordered Date Performed Result Body Sit e 81462-OONLLKB NAIL, 6 OR MORE 04/26/2024 N/A 33405-PDSX SKIN LESIONS, 2 TO 4 04/26/2024 N/A 02201-KXVOJSN NAIL, 6 OR MORE 07/26/2024 N/A 11339-UMRP SKIN LESIONS, 2 TO 4 07/26/2024 N/A 00510-AZYXGGK NAIL, 6 OR MORE 10/25/2024 N/A 14320-SHNI SKIN LESIONS, 2 TO 4 10/25/2024 N/A 05069-HPBALMJ NAIL, 6 OR MORE 01/24/2025 N/A 26267-PVQH SKIN LESIONS, 2 TO 4 01/24/2025 N/A Encounters Encounter Location Date Provider Diagnosis [address] [address] 04/26/2024 Fer Greenberg Atherosclerosis of [place] artery of both lower extremities, with unspecified presence of clinical manifestation I70.203 ; Tinea unguium B35.1 ; Pain in right toe(s) M79.674 and Pain in left toe(s) M79.[address] [address] 07/26/2024 Fer Greenberg Atherosclerosis of [place] artery of both lower extremities, with unspecified presence of clinical manifestation I70.203 ; Tinea unguium B35.1 ; Pain in right toe(s) M79.674 and Pain in left toe(s) M79.[address] [address] 10/25/2024 Fer Greenberg Atherosclerosis of [place] artery of both lower extremities, with unspecified presence of clinical manifestation I70.203 ; Tinea unguium B35.1 ; Pain in right toe(s) M79.674 ; Pain in left toe(s) M79.675 and Tinea pedis of both feet B35.3 [facility] [place] [address] [address] 01/24/2025 Fer Greenberg Atherosclerosis of [place] artery of both lower extremities, with unspecified presence of clinical manifestation I70.203 ; Tinea unguium B35.1 ; Pain in right toe(s) M79.674 ; Pain in left toe(s) M79.675 and Tinea pedis of both feet B35.3 Assessments Encounter Date Diagnosis (ICD Code) Assessment Notes Treatment Notes Treatment Clinical Notes Section Notes 04/26/2024 Tinea unguium (ICD-10 - B35.1) 04/26/2024 Atherosclerosis of [place] artery of both lower extremities, with unspecified presence of clinical manifestation (ICD-10 - I70.203) 07/26/2024 Tinea unguium (ICD-10 - B35.1) 07/26/2024 Atherosclerosis of [place] artery of both lower extremities, with unspecified presence of clinical manifestation (ICD-10 - I70.203) 10/25/2024 Tinea unguium (ICD-10 - B35.1) 10/25/2024 Atherosclerosis of [place] artery of both lower extremities, with unspecified presence of clinical manifestation (ICD-10 - I70.203) 01/24/2025 Tinea unguium (ICD-10 - B35.1) 01/24/2025 Atherosclerosis of [place] artery of both lower extremities, with unspecified presence of clinical manifestation (ICD-10 - I70.203) 10/25/2024 Pain in right toe(s) (ICD-10 - M79.674) 01/24/2025 Pain in right toe(s) (ICD-10 - M79.674) 04/26/2024 Pain in right toe(s) (ICD-10 - M79.674) 07/26/2024 Pain in right toe(s) (ICD-10 - M79.674) 04/26/2024 Pain in left toe(s) (ICD-10 - M79.675) 07/26/2024 Pain in left toe(s) (ICD-10 - M79.675) 01/24/2025 Pain in left toe(s) (ICD-10 - M79.675) 10/25/2024 Pain in left toe(s) (ICD-10 - M79.675) 01/24/2025 Tinea pedis of both feet (ICD-10 - B35.3) 10/25/2024 Tinea pedis of both feet (ICD-10 - B35.3) Plan Of Treatment Pending Test Test Name Order Date X ray : Foot, right 3V 08/27/2023 16559-WLZBOMJ NAIL, 6 OR MORE 11/10/2023 21188-EVMRXPC NAIL, 6 OR MORE 08/27/2023 56430-RLGAHIF NAIL, 6 OR MORE 01/26/2024 19734-VBXBDVZ NAIL, 6 OR MORE 04/26/2024 20175-AMDEQSZ NAIL, 6 OR MORE 07/01/2022 48352-LYVCZMJ NAIL, 6 OR MORE 10/07/2022 05974-MZBDLLN NAIL, 6 OR MORE 12/16/2022 45219-BBYMYXD NAIL, 6 OR MORE 03/03/2023 98940-REYMEMN NAIL, 6 OR MORE 06/09/2023 39191-KZHSWHK NAIL, 6 OR MORE 09/06/2019 59790-STOEHJZ NAIL, 6 OR MORE 2019 35986-VCJGPBJ NAIL, 6 OR MORE 02/07/2020 77283-EQJGOIT NAIL, 6 OR MORE 05/25/2020 56366-WEKKVAT NAIL, 6 OR MORE 08/07/2020 57564-SGVZXVA NAIL, 6 OR MORE 10/18/2020 23646-IFCMPHN NAIL, 6 OR MORE 01/08/2021 24214-IXSTRLV NAIL, 6 OR MORE 03/26/2021 32582-TOIWTSE NAIL, 6 OR MORE 10/26/2018 44254-JFCNLZN NAIL, 6 OR MORE 01/25/2019 11329-RKSXWCV NAIL, 6 OR MORE 03/29/2019 03136-WBBYJJI NAIL, 6 OR MORE 06/09/2019 37935-BYYUZSA NAIL, 6 OR MORE 06/13/2021 76836-GTRAPOU NAIL, 6 OR MORE 09/03/2021 58770-QHROFSE NAIL, 6 OR MORE 12/03/2021 42882-YPDAANR NAIL, 6 OR MORE 02/11/2022 40007-WRHSAQC NAIL, 6 OR MORE 04/22/2022 78513-OPHZXBO NAIL, 6 OR MORE 07/26/2024 77912-EQZUWUD NAIL, 6 OR MORE 10/25/2024 13768-NCIPEHR NAIL, 6 OR MORE 01/24/2025 87735-Umrsbuyv Plate 01/26/2024 60821- Debride <25 sq cm 04/22/2022 89163- Debride <25 sq cm 10/07/2022 62358-OOHO SKIN LESIONS, 2 TO 4 12/17/19 23 45051-PNUW SKIN LESIONS, 2 TO 4 06/09/20 23 52009-OSLK SKIN LESIONS, 2 TO 4 03/03/20 23 24109-SKZZ SKIN LESIONS, 2 TO 4 04/26/20 24 20638-KJYX SKIN LESIONS, 2 TO 4 01/26/20 24 46440-QZYL SKIN LESIONS, 2 TO 4 08/27/20 23 11566-XACH SKIN LESIONS, 2 TO 4 11/10/19 24 79924-ANOW SKIN LESIONS, 2 TO 4 01/25/20 25 62030-UVWL SKIN LESIONS, 2 TO 4 10/25/19 25 18012-QLYA SKIN LESIONS, 2 TO 4 07/26/20 24 41839 - Tenotomy, open flexor 06/23/2019 03080 - Tenotomy, open flexor 04/16/2021 Next Appt Details Provider Name:Fer Greenberg , 04/11/2025 09:30:00 AM, [address], [place], [address], Insurance Providers Payer Name Payer Address Payer Phone Subscriber Number Group Number Insured Name Patient Relationship to Insured Coverage Start Date Coverage End Date [employer] [place] [employer]vantage [address] [place] [address] [id number] Mini Crane Self - patient is the insured 4 Medical (General) History Medical History History ICD Code Arthritis Back,Hip,and Knee pain CAD Chicken pox High blood pressure Mumps Measles Joint implants/screws Surgical History Surgery Date(Month/Year) left knee replacement 2010 right knee replacement 2009
== END 2025-02-08 09:39 | disposition home or self-care (01) ==
DX: R73.01 Impaired fasting glucose (principal); F41.9 Anxiety disorder, unspecified; Z68.41 Body mass index [BMI] 40.0-44.9, adult; E66.9 Obesity, unspecified; I10 Essential (primary) hypertension; E78.5 Hyperlipidemia, unspecified; E87.6 Hypokalemia

== ENCOUNTER → 2025-02-08 08:44 | Outpatient (BNVA) | payer MEDICARE, SELFPAY | PROVIDERS: PCP Internal Medicine | DX: Z76.89 Persons encountering health services in other specified circumstances (principal); R73.01 Impaired fasting glucose; F41.9 Anxiety disorder, unspecified; E66.9 Obesity, unspecified; Z68.41 Body mass index [BMI] 40.0-44.9, adult; I10 Essential (primary) hypertension; E78.5 Hyperlipidemia, unspecified; E87.6 Hypokalemia | CPT/HCPCS: 96127; 99212 ==

== ENCOUNTER 2025-05-03 09:04 | Outpatient (REF) | payer MEDICARE, SELFPAY ==
--- OUTSIDE RECORDS SUMMARY | 2025-05-03 09:23 | XMS_ITS | Patient Health Record ---
Author Organization [facility] Address [address] [place] [address] Care Team Providers Care Pastry Wrapper Name Role Phone Sven Macey Primary Care Provider Unavailab Fer Delarosa Unavailable [phone] Allergies Allergen (clinical drug ingredient) Drug/Non Drug [...] tablet Orall y Once a day Not-Taking Ciclopirox Olamine 0.77 % 1 application Externally Twice a day to skin of feet including between the toes; Duration: 30 days Active Vitamin D (Cholecalciferol) 1000 UNIT 1 capsule Orally Once a day Active Triamterene Active Potassium Chloride 10 MEQ/100ML Intravenous Active OLANZapine 7.5 MG Orally Ac tive dilTIAZem HCl Active Atorvastatin Calcium Active Amoxicillin PRN Active Ammonium Lactate 12 % 1 application Externally to affected areas of dry skin to feet except for between the toes Twice a day; Duration: 30 days Active Immunizations Vaccine Route Administration Date Status Comme nts Influenza Unknown 07/24/2024 Administered COVID-19 Pfizer BioNTech Vaccine Unknown 11/30/2020 Administered COVID-19 Pfizer BioNTech Vaccine Unknown 12/21/2020 Administered 1st 11/30/2020 COVID-19 Daniel & Daniel/Luis Alberto Unknown 07/24/2024 Administered Social History Tobacco Use: Social History Observation Description Date Details (start date - stop date) Never Smoker NA - NA Tobacco use other than smoking: Question Answer Notes Are you an other tobacco user? No Tobacco Control (Standard) Question Answer Notes Tobacco use: Nonsmoker Additional Findings: Tobacco non-user Current no nsmoker AUDIT-C (Standard) Question Answer Notes Did you have a drink containing alcohol in the p ast year? No Points 0 Interpretation Negative Problems Problem Type SNOMED Code ICD Code Onset Dates Problem Status W/U Status Risk Notes Problem Bilateral atherosclerosis of arteries of lower limbs (disorder) (18076912634642777 ) Atherosclerosis of [place] artery of both lower extremities, with unspecified presence of clinical manifestation (I70.203) Active confirmed Vital Signs Blood pressure diastolic 72 mm Hg 04/11/2025 Height 5ft 5in in 04/11/2025 Blood pressure systolic 140 mm Hg 04/11/2025 Weight 251 lbs 04/11/2025 BMI 41.76 kg/m2 04/11/2025 Procedures Procedure Date Ordered Date Performed Result Body Sit e 18529-YLVHKGX NAIL, 6 OR MORE 07/26/2024 N/A 65370-BQFD SKIN LESIONS, 2 TO 4 07/26/2024 N/A 24149-OVBBDMQ NAIL, 6 OR MORE 10/25/2024 N/A 92877-JDNZ SKIN LESIONS, 2 TO 4 10/25/2024 N/A 00954-MXUJYSM NAIL, 6 OR MORE 01/24/2025 N/A 88095-GFOI SKIN LESIONS, 2 TO 4 01/24/2025 N/A 96318-UPPWQQR NAIL, 6 OR MORE 04/11/2025 N/A 71304-UHND SKIN LESIONS, 2 TO 4 04/11/2025 N/A Encounters Encounter Location Date Provider Diagnosis [facility] [address] [place] [address] 07/26/2024 Fer Greenberg Atherosclerosis of [place] artery of both lower extremities, with unspecified presence of clinical manifestation I70.203 ; Tinea unguium B35.1 ; Pain in right toe(s) M79.674 and Pain in left toe(s) M79.[address] [facility] [address] 10/25/2024 Fer Dionicio Atherosclerosis of [place] artery of both lower extremities, with unspecified presence of clinical manifestation I70.203 ; Tinea unguium B35.1 ; Pain in right toe(s) M79.674 ; Pain in left toe(s) M79.675 and Tinea pedis of both feet B35.[address] [address] 01/24/2025 Fer Romerounier Atherosclerosis of [place] artery of both lower extremities, with unspecified presence of clinical manifestation I70.203 ; Tinea unguium B35.1 ; Pain in right toe(s) M79.674 ; Pain in left toe(s) M79.675 and Tinea pedis of both feet B35.3 [place] [id number] [address] 04/11/2025 Fer Romerounier Atherosclerosis of [place] artery of both lower extremities, with unspecified presence of clinical manifestation I70.203 ; Tinea unguium B35.1 ; Pain in right toe(s) M79.674 ; Pain in left toe(s) M79.675 and Xerosis of skin L85.3 Assessments Encounter Date Diagnosis (ICD Code) Assessment Notes Treatment Notes Treatment Clinical Notes Section Notes 07/26/2024 Tinea unguium (ICD-10 - B35.1) 07/26/2024 Atherosclerosis of [place] artery of both lower extremities, with unspecified presence of clinical manifestation (ICD-10 - I70.203) 10/25/2024 Tinea unguium (ICD-10 - B35.1) 10/25/2024 Atherosclerosis of [place] artery of both lower extremities, with unspecified presence of clinical manifestation (ICD-10 - I70.203) 01/24/2025 Tinea unguium (ICD-10 - B35.1) 01/24/2025 Atherosclerosis of [place] artery of both lower extremities, with unspecified presence of clinical manifestation (ICD-10 - I70.203) 04/11/2025 Tinea unguium (ICD-10 - B35.1) 04/11/2025 Atherosclerosis of [place] artery of both lower extremities, with unspecified presence of clinical manifestation (ICD-10 - I70.203) 04/11/2025 Pain in right toe(s) (ICD-10 - M79.674) 10/25/2024 Pain in right toe(s) (ICD-10 - M79.674) 01/24/2025 Pain in right toe(s) (ICD-10 - M79.674) 07/26/2024 Pain in right toe(s) (ICD-10 - M79.674) 07/26/2024 Pain in left toe(s) (ICD-10 - M79.675) 01/24/2025 Pain in left toe(s) (ICD-10 - M79.675) 10/25/2024 Pain in left toe(s) (ICD-10 - M79.675) 04/11/2025 Pain in left toe(s) (ICD-10 - M79.675) 01/24/2025 Tinea pedis of both feet (ICD-10 - B35.3) 04/11/2025 Xerosis of skin (ICD-10 - L85.3) 10/25/2024 Tinea pedis of both feet (ICD-10 - B35.3) Plan Of Treatment Pending Test Test Name Order Date X ray : Foot, right 3V 08/27/2023 96132-EWHKBSK NAIL, 6 OR MORE 11/10/2023 62412-RBVCPWV NAIL, 6 OR MORE 08/27/2023 83588-SQGTFSW NAIL, 6 OR MORE 01/26/2024 65975-PQOHBBY NAIL, 6 OR MORE 04/26/2024 72908-EBOOTJM NAIL, 6 OR MORE 07/01/2022 34136-KOTKQEI NAIL, 6 OR MORE 10/07/2022 34733-FHNGRJR NAIL, 6 OR MORE 12/16/2022 79561-GJVSYBD NAIL, 6 OR MORE 03/03/2023 86632-QVIUBHH NAIL, 6 OR MORE 06/09/2023 61497-OUDZVTM NAIL, 6 OR MORE 09/06/2019 44205-TAPNUMQ NAIL, 6 OR MORE 2019 61556-CRPWOEG NAIL, 6 OR MORE 02/07/2020 22789-YXWSFGW NAIL, 6 OR MORE 05/25/2020 09390-QFNDIZS NAIL, 6 OR MORE 08/07/2020 50193-PZZRWQB NAIL, 6 OR MORE 10/18/2020 35660-EGHTCVI NAIL, 6 OR MORE 01/08/2021 45667-QSWJLVC NAIL, 6 OR MORE 03/26/2021 95590-RJTUPKQ NAIL, 6 OR MORE 10/26/2018 67277-COTLZFP NAIL, 6 OR MORE 01/25/2019 96195-IHVTCDV NAIL, 6 OR MORE 03/29/2019 72729-FFTXARR NAIL, 6 OR MORE 06/09/2019 07167-PQIJDBA NAIL, 6 OR MORE 06/13/2021 81914-VBAZUKC NAIL, 6 OR MORE 09/03/2021 50647-QBUAMYF NAIL, 6 OR MORE 12/03/2021 57952-TFLINUY NAIL, 6 OR MORE 02/11/2022 61434-NBMFAYQ NAIL, 6 OR MORE 04/22/2022 09352-VGAUQKC NAIL, 6 OR MORE 07/26/2024 73211-FSQFJCL NAIL, 6 OR MORE 10/25/2024 70782-JHAPJDX NAIL, 6 OR MORE 01/24/2025 80214-PHHQCEO NAIL, 6 OR MORE 04/11/2025 00009-Dqdctlgg Plate 01/26/2024 53951- Debride <25 sq cm 04/22/2022 47225- Debride <25 sq cm 10/07/2022 86757-IQHO SKIN LESIONS, 2 TO 4 12/17/19 92307-YSUH SKIN LESIONS, 2 TO 4 06/09/20 08524-ZHML SKIN LESIONS, 2 TO 4 03/03/20 87691-ERNR SKIN LESIONS, 2 TO 4 04/26/20 41055-HJDA SKIN LESIONS, 2 TO 4 01/26/20 24 46850-XFMY SKIN LESIONS, 2 TO 4 08/27/20 23 86946-CQJF SKIN LESIONS, 2 TO 4 11/10/19 24 60267-XWJQ SKIN LESIONS, 2 TO 4 04/11/20 99648-MWEZ SKIN LESIONS, 2 TO 4 01/25/20 01278-EQPU SKIN LESIONS, 2 TO 4 10/25/19 61001-ETPY SKIN LESIONS, 2 TO 4 07/26/20 47530 - Tenotomy, open flexor 06/23/2019 82367 - Tenotomy, open flexor 04/16/2021 Next Appt Details Provider Name:Fer Greenberg , 07/04/2025 10:30:00 AM, [address] , [address], [place], [address], Insurance Providers Payer Name Payer Address Payer Phone Subscriber Number Group Number Insured Name Patient Relationship to Insured Coverage Start Date Coverage End Date [employer] [place] [employer]vantage [facility] [address] [place] [address] [id number] Mini Crane Self - patient is the insured 4 Medical (General) History Medical History History ICD Code Arthritis Back,Hip,and Knee pain CAD Chicken pox High blood pressure Mumps Measles Joint implants/screws Surgical History Surgery Date(Month/Year) left knee replacement 2010 right knee replacement 2009
[2025-05-03 10:23] LABS: Anion Gap 12 (12-20); Blood Urea Nitrogen 15 mg/dL (9-16); Calcium 9.4 mg/dL (8.4-10.2); Carbon Dioxide 26 mmol/L (22-29); Chloride 109 mmol/L (96-108); Estimated Glomerular Filt Rate > 60; Potassium 3.7 mmol/L (3.3-5.1); Sodium 143 mmol/L (135-145)
[2025-05-03 10:42] LABS: Folate 5.5 ng/mL (> or = 4.0); Vitamin B12 350 pg/mL (200-900)
[2025-05-03 10:50] LABS: Hemoglobin A1C 129.9810 umol/L; Total Hemoglobin (HGBA1C) 3546.9902 umol/L
== END 2025-05-03 09:05 | disposition home or self-care (01) ==
LOC: HO.LAB 09:04
DX: Z00.00 Encounter for general adult medical examination without abnormal findings (principal); I10 Essential (primary) hypertension; R73.01 Impaired fasting glucose
CPT/HCPCS: 36415; 80048; 82306; 82607; 82746; 83036

== ENCOUNTER 2025-05-10 09:16 | Outpatient (AMB) | payer MEDICARE, SELFPAY ==
--- NOTE | 2025-05-10 09:21 | MHC.PC.OV ---
Vital Signs 05/10/25 09:22 Height 5 ft 4.5 in Weight 256 lb 4 oz BMI 43.3 BP 136/74 Blood Pressure Location Lt brachial Position Sitting Pulse 97 Pulse Source Pulse Oximeter Pulse Oximetry (%) 98 Oxygen Delivery Method Room Air Intake Visit Reasons: 3 month f/u Labor Standards Director Required: No Accompanied by: Self / Same As Patient Allergies animal dander Allergy (Unknown, Verified 05/10/25 09:59) UNKNOWN cat dander Allergy (Unknown, Verified 05/10/25 09:59) Unknown dog dander Allergy (Unknown, Verified 05/10/25 09:59) Unknown egg Allergy (Unknown, Verified 05/10/25 09:59) Unknown horse dander Allergy (Unknown, Verified 05/10/25 09:59) Unknown peanut (PEANUT) Allergy (Unknown, Verified 05/10/25 09:59) UNKNOWN Medication List - Last Reconciled 05/10/25 by Macey Machuca PA-C atorvastatin 20 mg PO DAILY cholecalciferol (vitamin D3) 25 mcg PO DAILY diltiazem HCl CD (Cardizem CD) 240 mg PO DAILY olanzapine 5 mg PO BEDTIME potassium chloride ER 20 mEq PO DAILY triamterene-hydrochlorothiazid 37.5-25 mg 1 tab PO DAILY Tobacco use date assessed: 05/10/25 Fall risk assessment: No Falls in past year Last assessed Fall Risk: 05/10/25 Dental Screening Dental Screen Date: 05/10/25 Did you have a dental visit in the last 12 months?: No Did you have a dental problem in the last 6 months where you did not have access to dental care?: No Was dental information given to patient?: No HPI 3 month f/u HPI Details 79-year-old female with past medical history of hyperlipidemia, hypertension, obesity, anxiety last seen 01/2025 coming in for follow up. Presenting with anxiety disorder and associated symptoms. The patient has been on olanzapine for anxiety, initially prescribed due to stress and paranoia. She reports feeling suspicious of others, interpreting benign interactions as negative. The medication has been used for several years, but she expresses a desire to discontinue due to weight gain. The patient experiences feelings of anxiety, feeling that social gatherings are set up against her. This has been ongoing for several years, and she attributes some relief to olanzapine, although she questions its current effectiveness. The patient reports back pain, which she associates with her posture and sleeping position. The pain started a few weeks ago, coinciding with the use of new pillows. She denies any pain upon palpation during the examination. The patient has experienced weight gain, which she attributes to her medications, including olanzapine and diltiazem. Despite dietary efforts, she finds it difficult to lose weight, possibly exacerbated by hormonal changes and anxiety. [facility] Medical History Physical exam Obesity Hypertension Hyperlipidemia Surgical History History of knee replacement procedure of right knee History of knee replacement procedure of left knee Family History Father Lung cancer Mother Bone cancer Daughter No problems noted. Social History Housing: House Alcohol intake: never Patient Tobacco Use Status: Never used Tobacco Tobacco use type: Cigarette e-Cigarette/Vaping Use: Never Used Second Hand Smoke Exposure: No service: No Current occupational status: retired Current occupational exposures/hazards: No Cognitive needs: No Hearing needs: No Vision needs: Yes Questionnaire PHQ-9 Over the last 2 weeks, how often have you been bothered by any of the following problems? 1. Little interest or pleasure in doing things: not at all 2. Feeling down, depressed, or hopeless: not at all 3. Trouble falling or staying asleep, or sleeping too much: not at all 4. Feeling tired or having little energy: not at all 5. Poor appetite or overeating: not at all 6. Feeling bad about yourself - or that you are a failure or have let yourself or your family down: not at all 7. Trouble concentrating on things, such as reading the newspaper or watching television: not at all 8. Moving or speaking so slowly that other people could have noticed. Or the opposite - being so fidgety or restless that you have been moving around a lot more than usual: not at all 9. Thoughts that you would be better off or of hurting yourself in some way: not at all Total score: 0 Depression Screening Interpretation: Negative Depression Screening Done: Yes 42399 - PHQ-9 Billing: Yes Source: Developed by Drs. Jai Aiken, Ramona Estevez, Tien Su and colleagues, with an educational luisito from [email or web address] Thrive Questionnaire Date Thrive assessed: 05/10/25 I am a: Patient What is your living situation today?: I have a steady place to live Within the past 12 months, did the food you bought not last and you didn't have the money to get more?: Never true Within the past 12 months, did you worry whether your food would run out before you got money to buy more?: Never true Do you have trouble paying for medicines?: No Do you have trouble getting transportation to medical appointments?: No Do you have trouble paying your heating and electricity bill?: No Do you have trouble taking care of your child, family member or friend?: No Do you have trouble with day-to-day activities such as bathing, preparing meals, shopping, managing finances, etc.?: No Are you currently unemployed and looking for a job?: No Are you interested in more education?: No Please select the resources that you would like help with: None Currently or been in a relationship where the following occur: No concerns reported THRIVE Score: 0 ALEXANDRA-7 AMB Questionnaire ALEXANDRA-7 Date ALEXANDRA - 7 assessed: 05/10/25 Source: Developed by Drs. Jai Aiken, Ramona Estevez, Tien Su and colleagues, with an educational luisito from [email or web address] Review of Systems Const Denies body aches, Denies chills, Denies fever(s) and Denies poor appetite Eyes Reports no additional complaints ENT Denies dizziness Card Denies chest pain, Denies lightheadedness and Denies dyspnea Resp Denies dyspnea GI Denies nausea and Denies vomiting Musc Reports as per HPI and Denies abnormal gait Skin/Breast Reports system reviewed and no additional complaints, except as documented Neuro Denies abnormal gait and Denies dizziness Psych Reports no additional complaints Physical exam (Primary Care) Vital Signs: Last Vital Signs Pulse 97 05/10/25 09:22 BP 136/74 05/10/25 09:22 Pulse Ox 98 05/10/25 09:22 Oxygen Delivery Method Room Air 05/10/25 09:22 BMI result Body Mass Index 43.3 Tobacco/Smoking Status: Tobacco use Status Tobacco use date assessed 05/10/25 05/10/25 09:23 Patient Tobacco Use Status Never used Tobacco 05/10/25 09:23 Tobacco use type Cigarette 05/10/25 09:23 e-Cigarette/Vaping Use Never Used 05/10/25 09:23 PHQ-9: PHQ-9 Score PHQ-9: Total score 0 05/10/25 09:29 Depression Screening Interpretation: Negative Thrive Assessment: Date of Thrive Assessment Date Thrive assessed 05/10/25 05/10/25 09:23 Currently or been in a relationship where the following occur: No concerns reported Const General: cooperative, healthy appearing, comfortable and no acute distress Orientation/consciousness: patient oriented x3 HENMT Head: Yes normocephalic Ears: hearing grossly normal bilaterally General nose exam: Normal external nose present Eyes General: appearance normal, both eyes and all related structures Conjunctivae: conjunctivae normal Neck Neck: Yes full ROM and Yes no lymphadenopathy Resp Effort & Inspection: normal respiratory effort Auscultation: clear to auscultation bilaterally, no crackles, no rales, no rhonchi and no wheezes Cardio Rate: regular rate Rhythm: regular rhythm Back/Spine/Pelvis Other: No tenderness to palpation over entirety of spine or paraspinal muscles Skin General skin exam: no rashes or lesions noted Neuro General: patient oriented x3 Gait exam (Neuro): Normal gait present Extrem General: Yes normal to inspection, Yes full ROM and No edema Psych Affect: normal affect Attitude: cooperative Insight: Good insight present (Psych) Judgement: Good judgement present (Psych) Coding Level of Care Code Est Pt Level 3 (84621) Diagnoses Elevated fasting glucose R73.01 Anxiety F41.9 Obesity E66.9 Hypertension I10 Hyperlipidemia E78.5 Hypokalemia E87.6 Low back pain M54.50 Additional Codes PHQ-9 - 85230 - PHQ-9 Billing: Yes ([id number]) Assessment & Plan Assessment & Plan (1) Elevated fasting glucose: Code(s): R73.01 - Impaired fasting glucose Category: Medical Plan: A1c on last blood work 5.5% not indicating diabetes at this time. Decrease the amount of carbohydrates such as pasta, bread, rice, and potatoes and limit the amount of sweets. Although fruits are generally healthy they should be eaten in moderation as they are still high in sugar. (2) Anxiety: Code(s): F41.9 - Anxiety disorder, unspecified Category: Medical Plan: Patient is currently on olanzapine at bedtime and feels good on this medication. She does report having increased paranoia and I did offer a referral to a psychiatrist for possible medication adjustment as she would like to discontinue off the olanzapine however given paranoia/anxiety plan to stay on this medication at this time. She will reach out should anything change. (3) Obesity: Code(s): E66.9 - Obesity, unspecified Category: Medical Plan: Healthy diet and regular exercise is encouraged. Discussed options for medication which were declined today. Also discussed options for exercise including indoor activities if walking is not doable. (4) Hypertension: Code(s): I10 - Essential (primary) hypertension Category: Medical Plan: Continue on current blood pressure medication. Avoid salt intake and encourage healthy diet and regular exercise. (5) Hyperlipidemia: Code(s): E78.5 - Hyperlipidemia, unspecified Category: Medical Plan: Avoid foods that are high in cholesterol such as red meat, fried foods, eggs and baked goods. Triglyceride goal of less than 150 and LDL goal of less than 130. Continue on atorvastatin 20. (6) Hypokalemia: Code(s): E87.6 - Hypokalemia Category: Medical Plan: Patient is currently using potassium supplement every other day but does often missed days as well. She is on a potassium-sparing diuretic but would like to trial discontinuation of the potassium. We will plan to hold the potassium supplement for 2 weeks and retest the blood work. Patient was provided with a handout for potassium rich foods to increase in her diet. I reviewed red flag symptoms and when to present for re-evaluation (7) Low back pain: Code(s): M54.50 - Low back pain, unspecified Category: Medical Plan: Low back pain occurring infrequently in the mornings over the last 2 weeks that resolved throughout the day. She does mentioned she recently changed her pillow which may be the cause of this. I did advised patient to try a different pillow in the meantime. For the muscular pain in the back recommend Tylenol and ibuprofen as needed as well as heating pads and muscle rubs. Follow up if symptoms worsen or persist Plan The patient will continue with the current management of anxiety disorder, with a consideration to taper off olanzapine due to weight gain and perceived reduced efficacy. A referral to a psychiatrist or counselor may be considered for alternative medication options with fewer side effects. For back pain, the patient is advised to adjust sleeping positions and consider using a different pillow. Stretching exercises and posture correction are recommended to alleviate discomfort. For weight management, the patient is encouraged to explore indoor exercise options, such as senior center activities or mall walking, due to the hot weather. Nutritional counseling may be beneficial, and a referral to a layboy tender can be considered to assist with meal planning and dietary adjustments. Potassium supplementation will be held for two weeks, with a follow-up blood test scheduled to monitor levels. This note was constructed using voice recognition software. While every effort has been made to ensure accuracy and brick sorter, still areas may have been included sometimes these areas may affect the content or meeting of the given symptoms. Total time spent caring for the patient today was 30 minutes. This includes time spent before the visit reviewing the chart, time spent during the visit, and time spent after the visit and documentation. Patient was informed and verbally consented to the use of an ambient scribe for clinic note documentation during this visit. Orders: Orders Potassium Today E87.6 - Hypokalemia
[2025-05-10 09:22] VITALS: BP 136/74; PULSE 97; O2SAT 98; BMI 43.3
--- OUTSIDE RECORDS SUMMARY | 2025-05-10 09:50 | XMS_ITS | Patient Health Record ---
Author Organization [facility] Address [address] [place] [address] Care Team Providers Care Shiftman Name Role Phone Sven Macey Primary Care Provider Unavailab Fer Delarosa Unavailable [phone] Allergies Allergen (clinical drug ingredient) Drug/Non Drug [...] atherosclerosis of arteries of lower limbs (disorder) ([id number] ) Atherosclerosis of [place] artery of both lower extremities, with unspecified presence of clinical manifestation (I70.203) Active confirmed Vital Signs Blood pressure diastolic 72 mm Hg 04/11/2025 Height 5ft 5in in 04/11/2025 Blood pressure systolic 140 mm Hg 04/11/2025 Weight 251 lbs 04/11/2025 BMI 41.76 kg/m2 04/11/2025 Procedures Procedure Date Ordered Date Performed Result Body Sit e 99138-BHWZTZB NAIL, 6 OR MORE 07/26/2024 N/A 11267-DDHU SKIN LESIONS, 2 TO 4 07/26/2024 N/A 24865-EPVTKDB NAIL, 6 OR MORE 10/25/2024 N/A 07880-QZQR SKIN LESIONS, 2 TO 4 10/25/2024 N/A 10137-DHYJFEL NAIL, 6 OR MORE 01/24/2025 N/A 42630-OXCK SKIN LESIONS, 2 TO 4 01/24/2025 N/A 91367-DEYILIO NAIL, 6 OR MORE 04/11/2025 N/A 92057-FOGP SKIN LESIONS, 2 TO 4 04/11/2025 N/A Encounters Encounter Location Date Provider [facility] [address] [place] [id number] 07/26/2024 Fer Greenberg Atherosclerosis of [place] artery of both lower extremities, with unspecified presence of clinical manifestation I70.203 ; Tinea unguium B35.1 ; Pain in right toe(s) M79.674 and Pain in left toe(s) M79.[address] [facility] [address] 10/25/2024 Fer Dionicio Atherosclerosis of [place] artery of both lower extremities, with unspecified presence of clinical manifestation I70.203 ; Tinea unguium B35.1 ; Pain in right toe(s) M79.674 ; Pain in left toe(s) M79.675 and Tinea pedis of both feet B35.[address] [address] 01/24/2025 Fer Romerounier Atherosclerosis of [place] artery of both lower extremities, with unspecified presence of clinical manifestation I70.203 ; Tinea unguium B35.1 ; Pain in right toe(s) M79.674 ; Pain in left toe(s) M79.675 and Tinea pedis of both feet B35.3 [place] [id number] [address] 04/11/2025 Fer Romerounier Atherosclerosis of [place] artery of both lower extremities, with unspecified presence of clinical manifestation I70.203 ; Tinea unguium B35.1 ; Pain in right toe(s) M79.674 ; Pain in left toe(s) M79.675 and Xerosis of skin L85.3 Assessments Encounter Date Diagnosis (ICD Code) Assessment Notes Treatment Notes Treatment Clinical Notes Section Notes 07/26/2024 Tinea unguium (ICD-10 - B35.1) 07/26/2024 Atherosclerosis of [place] artery of both lower extremities, with unspecified presence of clinical manifestation (ICD-10 - I70.203) 10/25/2024 Tinea unguium (ICD-10 - B35.1) 10/25/2024 Atherosclerosis of [place] artery of both lower extremities, with unspecified presence of clinical manifestation (ICD-10 - I70.203) 01/24/2025 Tinea unguium (ICD-10 - B35.1) 01/24/2025 Atherosclerosis of [place] artery of both lower extremities, with unspecified presence of clinical manifestation (ICD-10 - I70.203) 04/11/2025 Tinea unguium (ICD-10 - B35.1) 04/11/2025 Atherosclerosis of [place] artery of both lower extremities, with unspecified [...] X ray : Foot, right 3V 08/27/2023 95941-CUPNBFW NAIL, 6 OR MORE 11/10/2023 83120-AORMIIG NAIL, 6 OR MORE 08/27/2023 78093-BCPGSMK NAIL, 6 OR MORE 01/26/2024 34003-GGHLLFD NAIL, 6 OR MORE 04/26/2024 88111-RIODRDO NAIL, 6 OR MORE 07/01/2022 68560-AFGGGXE NAIL, 6 OR MORE 10/07/2022 75681-XVLAHOT NAIL, 6 OR MORE 12/16/2022 54429-MWHGCUI NAIL, 6 OR MORE 03/03/2023 53559-OCNMZBY NAIL, 6 OR MORE 06/09/2023 57705-QCRLPZC NAIL, 6 OR MORE 09/06/2019 04612-RCIQODS NAIL, 6 OR MORE 2019 02936-ZKWJEZY NAIL, 6 OR MORE 02/07/2020 84476-POFWGLE NAIL, 6 OR MORE 05/25/2020 42502-PQCTEYJ NAIL, 6 OR MORE 08/07/2020 89037-GBLGBKK NAIL, 6 OR MORE 10/18/2020 02585-SVJVYCN NAIL, 6 OR MORE 01/08/2021 40027-NYPOGFO NAIL, 6 OR MORE 03/26/2021 20093-VQRRQXK NAIL, 6 OR MORE 10/26/2018 94540-CNJJVPT NAIL, 6 OR MORE 01/25/2019 43567-PRODJOW NAIL, 6 OR MORE 03/29/2019 52884-IRPYWTK NAIL, 6 OR MORE 06/09/2019 99879-ICKSVCG NAIL, 6 OR MORE 06/13/2021 32957-UFNJWKH NAIL, 6 OR MORE 09/03/2021 78096-XIYFXDK NAIL, 6 OR MORE 12/03/2021 81441-RZVIOKB NAIL, 6 OR MORE 02/11/2022 33974-IPTHGDS NAIL, 6 OR MORE 04/22/2022 70923-KDVINWY NAIL, 6 OR MORE 07/26/2024 54447-PIHYMRV NAIL, 6 OR MORE 10/25/2024 70137-AMAJGPK NAIL, 6 OR MORE 01/24/2025 88201-NOZXAND NAIL, 6 OR MORE 04/11/2025 96424-Vdqvhosk Plate 01/26/2024 58016- Debride <25 sq cm 04/22/2022 08824- Debride <25 sq cm 10/07/2022 22209-SECO SKIN LESIONS, 2 TO 4 12/17/19 80285-ZPCK SKIN LESIONS, 2 TO 4 06/09/20 92394-XPLV SKIN LESIONS, 2 TO 4 03/03/20 16615-MBAT SKIN LESIONS, 2 TO 4 04/26/20 40412-DUEY SKIN LESIONS, 2 TO 4 01/26/20 24 12505-KIVH SKIN LESIONS, 2 TO 4 08/27/20 23 57856-ZGIC SKIN LESIONS, 2 TO 4 11/10/19 24 53698-QDEQ SKIN LESIONS, 2 TO 4 04/11/20 59841-WKPD SKIN LESIONS, 2 TO 4 01/25/20 60357-EVFJ SKIN LESIONS, 2 TO 4 10/25/19 61310-LPIT SKIN LESIONS, 2 TO 4 07/26/20 16589 - Tenotomy, open flexor 06/23/2019 41247 - Tenotomy, open flexor 04/16/2021 Next Appt Details Provider Name:Fer Greenberg , 07/04/2025 10:30:00 AM, [address], [place], [address], Insurance Providers Payer Name Payer Address Payer Phone Subscriber Number Group Number Insured Name Patient Relationship to Insured Coverage Start Date Coverage End Date [employer] [place] [employer]age [facility] [address] [place] [address] [id number] Mini Crane Self - patient is the insured 4 Medical (General) History Medical History History ICD Code Arthritis Back,Hip,and Knee pain CAD Chicken pox High blood pressure Mumps Measles Joint implants/screws Surgical History Surgery Date(Month/Year) left knee replacement 2010 right knee replacement 2009
== END 2025-05-10 10:25 | disposition home or self-care (01) ==
LOC: HO.HMCH 09:16
DX: R73.01 Impaired fasting glucose (principal); E66.9 Obesity, unspecified; Z68.41 Body mass index [BMI] 40.0-44.9, adult; F41.9 Anxiety disorder, unspecified; I10 Essential (primary) hypertension; E78.5 Hyperlipidemia, unspecified; E87.6 Hypokalemia; M54.50 Low back pain, unspecified

== ENCOUNTER → 2025-05-10 09:16 | Outpatient (BNVA) | payer MEDICARE, SELFPAY | DX: I10 Essential (primary) hypertension (principal); E78.5 Hyperlipidemia, unspecified; E87.6 Hypokalemia; E66.9 Obesity, unspecified; F41.9 Anxiety disorder, unspecified; M54.9 Dorsalgia, unspecified; R73.01 Impaired fasting glucose; M54.50 Low back pain, unspecified; Z79.899 Other long term (current) drug therapy | CPT/HCPCS: 96127; 99212 ==

== ENCOUNTER 2025-05-23 09:09 | Outpatient (REF) | payer MEDICARE, SELFPAY ==
[2025-05-23 10:11] LABS: Potassium 3.5 mmol/L (3.3-5.1)
== END 2025-05-23 09:10 | disposition home or self-care (01) ==
LOC: HO.LAB 09:09
DX: E87.6 Hypokalemia (principal)
CPT/HCPCS: 36415; 84132

== ENCOUNTER 2025-08-09 08:56 | Outpatient (AMB) | payer MEDICARE, SELFPAY ==
[2025-08-09 09:16] VITALS: BP 160/78; PULSE 109; RESP 18; TEMP 36.2; O2SAT 98; BMI 43.3
--- NOTE | 2025-08-09 09:16 | A.OFFPC_ITS ---
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 Accompanied by: Self / Same As Patient Allergies animal dander Allergy (Unknown, Verified 08/09/25 09:37) UNKNOWN cat dander Allergy (Unknown, Verified 08/09/25 09:37) Unknown dog dander Allergy (Unknown, Verified 08/09/25 09:37) Unknown egg Allergy (Unknown, Verified 08/09/25 09:37) Unknown horse dander Allergy (Unknown, Verified 08/09/25 09:37) Unknown peanut (PEANUT) Allergy (Unknown, Verified 08/09/25 09:37) UNKNOWN Medication List - Last Reconciled 08/09/25 by Macey Machuca PA-C atorvastatin 20 mg PO DAILY cholecalciferol (vitamin D3) 25 mcg PO DAILY diltiazem HCl CD (Cardizem CD) 240 mg PO DAILY olanzapine 5 mg PO BEDTIME potassium chloride ER 20 mEq PO DAILY triamterene-hydrochlorothiazid 37.5-25 mg 1 tab PO DAILY Tobacco use date assessed: 08/09/25 Fall risk assessment: No Falls in past year Last assessed Fall Risk: 08/09/25 Dental Screening Dental Screen Date: 08/09/25 Did you have a dental visit in the last 12 months?: Yes Did you have a dental problem in the last 6 months where you did not have access to dental care?: No Was dental information given to patient?: Patient has dentist HPI Annual exam HPI Details 79-year-old female with past medical his tory of hyperlipidemia, hypertension, obesity, anxiety last seen 04/2025 coming in for annual exam.? Presenting for a follow-up visit, medication refills, and evaluation of a new dry cough. The patient reports she forgot to take her blood pressure medication this morning, resulting in a high reading at the visit. The patient reports a new, constant, dry cough that started when the weather changed and the heat was turned on. The cough occurs in the morning and sometimes in the early evening, and she suspects it may be related to her known allergies. She has been taking Robitussin for the cough. Mammogram: September 2024 Bone density: Declining believes she is up-to-date Eye exam: Yearly will be due in February Pap smear: Follows with gynecology regularly Colonoscopy: Completed Cologuard last year vaccines: [facility] Medical History Physical exam Obesity Hypertension Hyperlipidemia Surgical History History of knee replacement procedure of right knee History of knee replacement procedure of left knee Family History Father Lung cancer Mother Bone cancer Daughter No problems noted. Social History Housing: House Alcohol intake: never Patient Tobacco Use Status: Never used Tobacco Tobacco use type: Cigarette e-Cigarette/Vaping Use: Never Used Second Hand Smoke Exposure: No service: No Current occupational status: retired Current occupational exposures/hazards: No Cognitive needs: No Hearing needs: No Vision needs: Yes Questionnaire Thrive Questionnaire Date Thrive assessed: 02/01/25 I am a: Patient What is your living situation today?: I have a steady place to live Within the past 12 months, did the food you bought not last and you didn't have the money to get more?: Never true Within the past 12 months, did you worry whether your food would run out before you got money to buy more?: Never true Do you have trouble paying for medicines?: No Do you have trouble getting transportation to medical appointments?: No Do you have trouble paying your heating and electricity bill?: No Do you have trouble taking care of your child, family member or friend?: No Do you have trouble with day-to-day activities such as bathing, preparing meals, shopping, managing finances, etc.?: No Are you currently unemployed and looking for a job?: No Are you interested in more education?: No Please select the resources that you would like help with: None Currently or been in a relationship where the following occur: No concerns reported THRIVE Score: 0 ALEXANDRA-7 AMB Questionnaire ALEXANDRA-7 Date ALEXANDRA - 7 assessed: 05/10/25 Source: Developed by Drs. Jai Aiken, Ramona Estevez, Tien Su and colleagues, with an educational luisito from [employer]. Review of Systems Const Denies body aches, Denies chills, Denies fever(s), Denies headache(s) and Denies poor appetite Eyes Reports no additional complaints ENT Denies dysphagia, Denies dizziness, Denies headache(s) and Denies odynophagia Card Denies chest pain, Denies syncope, Denies edema, Denies irregular heart rhythm, Denies lightheadedness and Denies dyspnea Resp Reports cough (as per HPI) and Denies dyspnea GI Denies abdominal pain, Denies constipation, Denies dysphagia, Denies diarrhea, Denies nausea, Denies odynophagia and Denies vomiting Reports no additional complaints Musc Reports no additional complaints and Denies abnormal gait Skin/Breast Reports system reviewed and no additional complaints, except as documented Neuro Denies abnormal gait, Denies dizziness, Denies syncope and Denies headache(s) Psych Reports no additional complaints Physical exam (Primary Care) Vital Signs: Last Vital Signs Temp 97.1 F 08/09/25 09:16 Pulse 109 H 08/09/25 09:16 Resp 18 08/09/25 09:16 BP 152/82 H 08/09/25 09:59 Pulse Ox 98 08/09/25 09:16 Oxygen Delivery Method Room Air 08/09/25 09:16 BMI result Body Mass Index 43.3 Tobacco/Smoking Status: Tobacco use Status Tobacco use date assessed 08/09/25 08/09/25 09:22 Patient Tobacco Use Status Never used Tobacco 08/09/25 09:22 Tobacco use type Cigarette 08/09/25 09:22 e-Cigarette/Vaping Use Never Used 08/09/25 09:22 Thrive Assessment: Date of Thrive Assessment Date Thrive assessed 02/01/25 08/09/25 09:22 Currently or been in a relationship where the following occur: No concerns reported Const General: cooperative, healthy appearing, comfortable and no acute distress Orientation/consciousness: patient oriented x3 HENMT Head: Yes normocephalic Ears: hearing grossly normal bilaterally, external ears normal, TM's normal bilaterally and EAC's normal General nose exam: Normal external nose present Face and sinus: Yes normal facial exam and Yes sinuses nontender Mouth: Normal oral and palatal mucosa present and tongue normal Throat: Yes posterior oropharynx normal Eyes General: appearance normal, both eyes and all related structures Conjunctivae: conjunctivae normal Pupils: Equal, round and reactive pupils present EOM: EOMs intact bilaterally and No Nystagmus present Neck Neck: Yes normal visual inspection, Yes full ROM and Yes no lymphadenopathy Chest Chest palpation & inspection: normal inspection of the chest Resp Effort & Inspection: normal respiratory effort Auscultation: clear to auscultation bilaterally, no crackles, no rales, no rhonchi, no wheezes and breath sounds present Cardio Rate: regular rate Rhythm: regular rhythm Peripheral pulses: radial pulses present and dorsalis pedis present GI Inspection: Yes normal to inspection and No Abdominal wall edema Palpation (GI): Soft to palpation, not firm and nontender Auscultation: normal bowel sounds Rectal Exam - Female: deferred General: Yes no CVA tenderness Back/Spine/Pelvis Back: no CVA tenderness Skin General skin exam: no rashes or lesions noted Neuro General: patient oriented x3 Cranial nerves: Yes Equal, round and reactive pupils present, Yes Midline tongue present, Yes Ability to bilaterally elevate shoulders present and No Nystagmus present Gait exam (Neuro): Normal gait present Extrem General: Yes normal to inspection, Yes full ROM, No no pedal edema and Yes edema (1+) Psych Speech and movement: Normal speech and movement present Affect: normal affect Insight: Good insight present (Psych) Judgement: Good judgement present (Psych) Coding Level of Care Code Est Pt Prev Care >65y(02571) Diagnoses Annual physical exam Z00.00 Elevated fasting glucose R73.01 Anxiety F41.9 Obesity E66.9 Hypertension I10 Hyperlipidemia E78.5 Hypokalemia E87.6 Low back pain M54.50 Cough R05 Leg swelling M79.89 Assessment & Plan Assessment & Plan (1) Annual physical exam: Code(s): Z00.00 - Encounter for general adult medical examination without abnormal findings Category: Medical Plan: Patient is up-to-date on all recommended routine screenings and vaccinations for her age. Blood work is up-to-date and has been reviewed with the patient. I did ordered for additional blood work as well. Plan to follow up in 3 months or sooner as needed. Healthy diet and regular exercise is encouraged. (2) Elevated fasting glucose: Code(s): R73.01 - Impaired fasting glucose Category: Medical Plan: A1c on last blood work 5.5% not indicating diabetes at this time. Decrease the amount of carbohydrates such as pasta, bread, rice, and potatoes and limit the amount of sweets. Although fruits are generally healthy they should be eaten in moderation as they are still high in sugar. (3) Anxiety: Code(s): F41.9 - Anxiety disorder, unspecified Category: Medical Plan: Patient is currently on olanzapine at bedtime and feels good on this medication. She does report having increased paranoia and I did offer a referral to a psychiatrist for possible medication adjustment as she would like to discontinue off the olanzapine however given paranoia/anxiety plan to stay on this medication at this time. She will reach out should anything change. (4) Obesity: Code(s): E66.9 - Obesity, unspecified Category: Medical Plan: Healthy diet and regular exercise is encouraged. Discussed options for medication which were declined today. Also discussed options for exercise including indoor activities if walking is not doable. (5) Hypertension: Code(s): I10 - Essential (primary) hypertension Category: Medical Plan: Blood pressure is elevated in the office today 152/82 however patient reports she did not take her blood pressure medication this morning. She will take her blood pressure medication today and report her blood pressure to the office. She will also continue to monitor her blood pressure daily and if it exceeds 140/90 to reach out to the office. Continue on current blood pressure medication. Avoid salt intake and encourage healthy diet and regular exercise. (6) Hyperlipidemia: Code(s): E78.5 - Hyperlipidemia, unspecified Category: Medical Plan: Avoid foods that are high in cholesterol such as red meat, fried foods, eggs and baked goods. Triglyceride goal of less than 150 and LDL goal of less than 130. Continue on atorvastatin 20. Ordered for repeat blood work. (7) Hypokalemia: Code(s): E87.6 - Hypokalemia Category: Medical Plan: Patient was advised at her last visit to discontinue the potassium supplement however she did continue to take it. Plan to discontinue at this time and plan for repeat blood work in 2 weeks. If potassium is normal plan to discontinue potassium supplementation I reviewed red flag symptoms and when to present for re-evaluation (8) Low back pain: Code(s): M54.50 - Low back pain, unspecified Category: Medical Plan: Has improved at this time and she will continue to monitor. (9) Cough: Code(s): R05 - Cough Category: Medical Plan: The patient's chronic dry cough is likely multifactorial, with acid reflux and allergies being the primary considerations. The plan is to trial lifestyle modifications for acid reflux, including avoiding eating 3-4 hours before bedtime, elevating the head of the bed, and sleeping on the left side. Additionally, she will try an [id number]-bsmukdx allergy medication such as Claritin for one week. If the cough does not improve with these measures, chest imaging will be considered for further evaluation. (10) Leg swelling: Code(s): M79.89 - Other specified soft tissue disorders Category: Medical Plan: For the swelling in her legs, the patient is advised to continue elevating her legs and to try wearing compression socks. Exercise is also encouraged. Plan This note was constructed using voice recognition software. 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 Total time spent caring for the patient today was thirty minutes. This includes time spent before the visit reviewing the chart, time spent during the visit, and time spent after the visit and documentation. Patient was informed and verbally consented to the use of an ambient scribe for clinic note documentation during this visit. Orders: Orders Lipid Panel Today E78.00 - Pure hypercholesterolemia, unspecified Comprehensive Met. Panel Today E87.6 - Hypokalemia Medications: Refilled atorvastatin 20 mg PO DAILY 90 tabs 3RF triamterene-hydrochlorothiazid 37.5-25 mg 1 tab PO DAILY 90 tabs 2RF
--- OUTSIDE RECORDS SUMMARY | 2025-08-09 09:24 | XMS_ITS | Patient Health Record ---
Author Organization [facility] Address [address] [place] [address] Care Team Providers Care Personal Lines Insurance Advisor Name Role Phone Macey Machuca Primary Care Provider Unavailab Fer Delarosa Unavailable [phone] Allergies Allergen (clinical drug ingredient) Drug/Non Drug [...] Duration) Notes Start Date End Date Status Ammonium Lactate 12 % 1 application Externally to affected areas of dry skin to feet except for between the toes Twice a day; Duration: 30 days Active Ciclopirox Olamine 0.77 % 1 application Externally Twice a day to skin of feet including between the toes; Duration: 30 days Active Vitamin D (Cholecalciferol) 1000 UNIT 1 capsule Orally Once a day Active Triamterene Active Potassium Chloride 10 MEQ/100ML Intravenous Active OLANZapine 7.5 MG Orally Ac tive dilTIAZem HCl Active Atorvastatin Calcium Active Amoxicillin PRN Active amLODIPine Besylate 10 MG 1 tablet Orall y Once a day Not-Taking Immunizations Vaccine Route Administration Date Status Comme [...] atherosclerosis of arteries of lower limbs (disorder) ([id number] ) Atherosclerosis of [place] artery of both lower extremities, with unspecified presence of clinical manifestation (I70.203) Active confirmed Vital Signs Blood pressure diastolic 72 mm Hg 07/04/2025 Height 5ft 5in in 07/04/2025 Blood pressure systolic 140 mm Hg 07/04/2025 Weight 251 lbs 07/04/2025 BMI 41.76 kg/m2 07/04/2025 Procedures Procedure Date Ordered Date Performed Result Body Sit e 95020-ACMUYLG NAIL, 6 OR MORE 10/25/2024 N/A 97208-KHPT SKIN LESIONS, 2 TO 4 10/25/2024 N/A 18815-MJOCADD NAIL, 6 OR MORE 01/24/2025 N/A 69386-ENEU SKIN LESIONS, 2 TO 4 01/24/2025 N/A 87903-NNJEHAL NAIL, 6 OR MORE 04/11/2025 N/A 77891-GRWM SKIN LESIONS, 2 TO 4 04/11/2025 N/A 70132-ZZVARIO NAIL, 6 OR MORE 07/04/2025 N/A 74746-FBJG SKIN LESIONS, 2 TO 4 07/04/2025 N/A Encounters Encounter Location Date Provider Diagnosis [facility] [address] 10/25/2024 Fer Greenberg Atherosclerosis of [place] artery of both lower extremities, with unspecified presence of clinical manifestation I70.203 ; Tinea unguium B35.1 ; Pain in right toe(s) M79.674 ; Pain in left toe(s) M79.675 and Tinea pedis of both feet B35.3 [facility] [address] [address] 01/24/2025 Fer Greenberg Atherosclerosis of [place] artery of both lower extremities, with unspecified presence of clinical manifestation I70.203 ; Tinea unguium B35.1 ; Pain in right toe(s) M79.674 ; Pain in left toe(s) M79.675 and Tinea pedis of both feet B35.[address] [address] 04/11/2025 Fer Greenberg Atherosclerosis of [place] artery of both lower extremities, with unspecified presence of clinical manifestation I70.203 ; Tinea unguium B35.1 ; Pain in right toe(s) M79.674 ; Pain in left toe(s) M79.675 and Xerosis of skin L85.[address] [address] 07/04/2025 Fer Greenberg Atherosclerosis of [place] artery of both lower extremities, with unspecified presence of clinical manifestation I70.203 ; Tinea unguium B35.1 ; Pain in right toe(s) M79.674 ; Pain in left toe(s) M79.675 and Xerosis of skin L85.3 Assessments Encounter Date Diagnosis (ICD Code) Assessment Notes Treatment Notes Treatment Clinical Notes Section Notes 10/25/2024 Tinea unguium (ICD-10 - B35.1) 10/25/2024 Atherosclerosis of [place] artery of both lower extremities, with unspecified presence of clinical manifestation (ICD-10 - I70.203) 01/24/2025 Tinea unguium (ICD-10 - B35.1) 01/24/2025 Atherosclerosis of [place] artery of both lower extremities, with unspecified presence of clinical manifestation (ICD-10 - I70.203) 04/11/2025 Tinea unguium (ICD-10 - B35.1) 04/11/2025 Atherosclerosis of [place] artery of both lower extremities, with unspecified presence of clinical manifestation (ICD-10 - I70.203) 07/04/2025 Tinea unguium (ICD-10 - B35.1) 07/04/2025 Atherosclerosis of [place] artery of both lower extremities, with unspecified presence of clinical manifestation (ICD-10 - I70.203) 07/04/2025 Pain in right toe(s) (ICD-10 - M79.674) 04/11/2025 Pain in right toe(s) (ICD-10 - M79.674) 10/25/2024 Pain in right toe(s) (ICD-10 - M79.674) 01/24/2025 Pain in right toe(s) (ICD-10 - M79.674) 01/24/2025 Pain in left toe(s) (ICD-10 - M79.675) 10/25/2024 Pain in left toe(s) (ICD-10 - M79.675) 07/04/2025 Pain in left toe(s) (ICD-10 - M79.675) 04/11/2025 Pain in left toe(s) (ICD-10 - M79.675) 01/24/2025 Tinea pedis of both feet (ICD-10 - B35.3) 04/11/2025 Xerosis of skin (ICD-10 - L85.3) 07/04/2025 Xerosis of skin (ICD-10 - L85.3) 10/25/2024 Tinea pedis of both feet (ICD-10 - B35.3) Plan Of Treatment Pending Test Test Name Order Date X ray : Foot, right 3V 08/27/2023 27957-IQYITRP NAIL, 6 OR MORE 11/10/2023 91778-AAVSJKH NAIL, 6 OR MORE 08/27/2023 65666-UUILDDL NAIL, 6 OR MORE 01/26/2024 75996-IWSFEBL NAIL, 6 OR MORE 04/26/2024 45067-FOHJZQU NAIL, 6 OR MORE 07/01/2022 90732-VRZXAHX NAIL, 6 OR MORE 10/07/2022 03159-SIRGMME NAIL, 6 OR MORE 12/16/2022 94736-HRGBSWW NAIL, 6 OR MORE 03/03/2023 73048-AYEUNAQ NAIL, 6 OR MORE 06/09/2023 27721-TIWIGHB NAIL, 6 OR MORE 09/06/2019 66282-BGEIAPU NAIL, 6 OR MORE 2019 43828-XSTHVJS NAIL, 6 OR MORE 02/07/2020 50834-EVOMFPK NAIL, 6 OR MORE 05/25/2020 07096-OADQIOS NAIL, 6 OR MORE 08/07/2020 31740-SXRWMWD NAIL, 6 OR MORE 10/18/2020 94924-QXMKPIP NAIL, 6 OR MORE 01/08/2021 07841-QFLDGBB NAIL, 6 OR MORE 03/26/2021 76240-XBNPLOP NAIL, 6 OR MORE 10/26/2018 20199-OETLBYT NAIL, 6 OR MORE 01/25/2019 26921-YYDVXPY NAIL, 6 OR MORE 03/29/2019 23872-OERRKTV NAIL, 6 OR MORE 06/09/2019 73267-JFJYEXX NAIL, 6 OR MORE 06/13/2021 98677-PUAGTHQ NAIL, 6 OR MORE 09/03/2021 22833-KKARWSB NAIL, 6 OR MORE 12/03/2021 65083-ZUUYOXI NAIL, 6 OR MORE 02/11/2022 78434-DKDTEEP NAIL, 6 OR MORE 04/22/2022 99350-CADYBJM NAIL, 6 OR MORE 07/26/2024 40014-KLARDXP NAIL, 6 OR MORE 10/25/2024 60213-UUHJUQL NAIL, 6 OR MORE 01/24/2025 41423-EWCYMNX NAIL, 6 OR MORE 04/11/2025 85201-IDBQXHL NAIL, 6 OR MORE 07/04/2025 88066-Sxshoukx Plate 01/26/2024 86497- Debride <25 sq cm 04/22/2022 19143- Debride <25 sq cm 10/07/2022 09713-BZFS SKIN LESIONS, 2 TO 4 12/17/19 11962-TYOY SKIN LESIONS, 2 TO 4 06/09/20 04576-VSKI SKIN LESIONS, 2 TO 4 03/03/20 43559-OPEE SKIN LESIONS, 2 TO 4 04/26/20 71614-XCHM SKIN LESIONS, 2 TO 4 01/26/20 39379-GDUS SKIN LESIONS, 2 TO 4 08/27/20 32581-PZON SKIN LESIONS, 2 TO 4 11/10/19 91820-DJXT SKIN LESIONS, 2 TO 4 07/04/20 28911-EQML SKIN LESIONS, 2 TO 4 04/11/20 26236-QYZK SKIN LESIONS, 2 TO 4 01/25/20 89379-VISZ SKIN LESIONS, 2 TO 4 10/25/19 43658-RYYL SKIN LESIONS, 2 TO 4 07/26/20 02255 - Tenotomy, open flexor 06/23/2019 44853 - Tenotomy, open flexor 04/16/2021 Next Appt Details Provider Name:Fer Greenberg , 10/24/2025 10:00:00 AM, [address] [facility], [address], [place], [address], Insurance Providers Payer Name Payer Address Payer Phone Subscriber Number Group Number Insured Name Patient Relationship to Insured Coverage Start Date Coverage End Date [employer] [address] [place] [address] [id number] Mini Crane Self - patient is the insured 4 Medical (General) History Medical History History ICD Code Arthritis Back,Hip,and Knee pain CAD Chicken pox High blood pressure Mumps Measles Joint implants/screws Surgical History Surgery Date(Month/Year) left knee replacement 2010 right knee replacement 2009
[2025-08-09 09:59] VITALS: BP 152/82
== END 2025-08-09 10:04 | disposition home or self-care (01) ==
LOC: HO.HMCH 08:57
DX: Z00.00 Encounter for general adult medical examination without abnormal findings (principal); R73.01 Impaired fasting glucose; Z68.41 Body mass index [BMI] 40.0-44.9, adult; E66.9 Obesity, unspecified; F41.9 Anxiety disorder, unspecified; I10 Essential (primary) hypertension; E78.5 Hyperlipidemia, unspecified; E87.6 Hypokalemia; M54.50 Low back pain, unspecified; R05.9 Cough, unspecified; M79.89 Other specified soft tissue disorders

== ENCOUNTER → 2025-08-09 08:56 | Outpatient (BNVA) | payer MEDICARE, SELFPAY | DX: Z00.00 Encounter for general adult medical examination without abnormal findings (principal); R73.01 Impaired fasting glucose; F41.9 Anxiety disorder, unspecified; E66.9 Obesity, unspecified; I10 Essential (primary) hypertension; E78.5 Hyperlipidemia, unspecified; E87.6 Hypokalemia; M54.50 Low back pain, unspecified; R05.9 Cough, unspecified; M79.89 Other specified soft tissue disorders; Z68.41 Body mass index [BMI] 40.0-44.9, adult | CPT/HCPCS: 99397 ==

== ENCOUNTER 2025-08-29 09:10 | Outpatient (REF) | payer MEDICARE, SELFPAY ==
[2025-08-29 10:18] LABS: Alanine Aminotransferase 8 U/L (0-31); Albumin Level 4.0 g/dL (3.5-5.0); Alkaline Phosphatase 112 U/L (39-117); Anion Gap 13 (12-20); Aspartate Amino Transferase 20 U/L (5-31); Blood Urea Nitrogen 15 mg/dL (9-16); Calcium 9.5 mg/dL (8.4-10.2); Carbon Dioxide 27 mmol/L (22-29); Chloride 107 mmol/L (96-108); Cholesterol 167 mg/dL (<200); Estimated Glomerular Filt Rate > 60; HDL Cholesterol 52 mg/dL (>40); Potassium 3.6 mmol/L (3.3-5.1); Sodium 143 mmol/L (135-145); Total Protein 6.9 g/dL (6.5-8.0); Triglycerides 61 mg/dL (<150)
--- OUTSIDE RECORDS SUMMARY | 2025-08-29 10:53 | XMS_ITS | Patient Health Record ---
Author Organization [facility] Address [address] [place] [address] Care Team Providers Care Fans Clerk Name Role Phone Macey Machuca Primary Care Provider Unavailab Fer Delarosa Unavailable [phone] Allergies Allergen (clinical drug ingredient) Drug/Non Drug [...] atherosclerosis of arteries of lower limbs (disorder) ([id number] ) Atherosclerosis of [place] artery of both lower extremities, with unspecified presence of clinical manifestation (I70.203) Active confirmed Vital Signs Blood pressure diastolic 72 mm Hg 07/04/2025 Height 5ft 5in in 07/04/2025 Blood pressure systolic 140 mm Hg 07/04/2025 Weight 251 lbs 07/04/2025 BMI 41.76 kg/m2 07/04/2025 Procedures Procedure Date Ordered Date Performed Result Body Sit e 25520-HFHVJHK NAIL, 6 OR MORE 10/25/2024 N/A 95043-VVPE SKIN LESIONS, 2 TO 4 10/25/2024 N/A 55265-KENHGCX NAIL, 6 OR MORE 01/24/2025 N/A 72852-VYRP SKIN LESIONS, 2 TO 4 01/24/2025 N/A 01600-LVFDDMH NAIL, 6 OR MORE 04/11/2025 N/A 82371-NCPS SKIN LESIONS, 2 TO 4 04/11/2025 N/A 16271-BLGRTEJ NAIL, 6 OR MORE 07/04/2025 N/A 22980-QNNE SKIN LESIONS, 2 TO 4 07/04/2025 N/A Encounters Encounter Location Date Provider Diagnosis [facility] [address] 10/25/2024 Fer Greenberg Atherosclerosis of [place] artery of both lower extremities, with unspecified presence of clinical manifestation I70.203 ; Tinea unguium B35.1 ; Pain in right toe(s) M79.674 ; Pain in left toe(s) M79.675 and Tinea pedis of both feet B35.3 [facility] [address] [address] 01/24/2025 Fer Greenberg Atherosclerosis of [place] artery of both lower extremities, with unspecified presence of clinical manifestation I70.203 ; Tinea unguium B35.1 ; Pain in right toe(s) M79.674 ; Pain in left toe(s) M79.675 and Tinea pedis of both feet B35.[address] [address] 04/11/2025 Fer Greenberg Atherosclerosis of [place] artery of both lower extremities, with unspecified presence of clinical manifestation I70.203 ; Tinea unguium B35.1 ; Pain in right toe(s) M79.674 ; Pain in left toe(s) M79.675 and Xerosis of skin L85.[address] [address] 07/04/2025 Fer Greenberg Atherosclerosis of [place] artery of both lower extremities, with unspecified presence of clinical manifestation I70.203 ; Tinea unguium B35.1 ; Pain in right toe(s) M79.674 ; Pain in left toe(s) M79.675 and Xerosis of skin L85.3 Assessments Encounter Date Diagnosis (ICD Code) Assessment Notes Treatment Notes Treatment Clinical Notes Section Notes 10/25/2024 Tinea unguium (ICD-10 - B35.1) 10/25/2024 Atherosclerosis of [place] artery of both lower extremities, with unspecified presence of clinical manifestation (ICD-10 - I70.203) 01/24/2025 Tinea unguium (ICD-10 - B35.1) 01/24/2025 Atherosclerosis of [place] artery of both lower extremities, with unspecified presence of clinical manifestation (ICD-10 - I70.203) 04/11/2025 Tinea unguium (ICD-10 - B35.1) 04/11/2025 Atherosclerosis of [place] artery of both lower extremities, with unspecified presence of clinical manifestation (ICD-10 - I70.203) 07/04/2025 Tinea unguium (ICD-10 - B35.1) 07/04/2025 Atherosclerosis of [place] artery of both lower extremities, with unspecified [...] X ray : Foot, right 3V 08/27/2023 86985-AVJFBJF NAIL, 6 OR MORE 11/10/2023 44155-ZVFWYCQ NAIL, 6 OR MORE 08/27/2023 48580-OCTCVJR NAIL, 6 OR MORE 01/26/2024 50231-ZSIBUCT NAIL, 6 OR MORE 04/26/2024 23257-FVOWSQC NAIL, 6 OR MORE 07/01/2022 61791-ETIZRVZ NAIL, 6 OR MORE 10/07/2022 05185-KLJODNW NAIL, 6 OR MORE 12/16/2022 44055-OYWFBAU NAIL, 6 OR MORE 03/03/2023 27924-ARDEWNX NAIL, 6 OR MORE 06/09/2023 19255-FGGOFMR NAIL, 6 OR MORE 09/06/2019 00210-RKKSBKL NAIL, 6 OR MORE 2019 37084-GOPEQJH NAIL, 6 OR MORE 02/07/2020 79906-ROOBBSZ NAIL, 6 OR MORE 05/25/2020 71920-BPVPFDJ NAIL, 6 OR MORE 08/07/2020 00325-KIIXAIK NAIL, 6 OR MORE 10/18/2020 18774-WMLTSFP NAIL, 6 OR MORE 01/08/2021 66075-PBGDUPR NAIL, 6 OR MORE 03/26/2021 47711-DAWZRZV NAIL, 6 OR MORE 10/26/2018 87153-QRXGHJE NAIL, 6 OR MORE 01/25/2019 17392-MQWICWU NAIL, 6 OR MORE 03/29/2019 70515-YGFHZFZ NAIL, 6 OR MORE 06/09/2019 02280-WMHOTAU NAIL, 6 OR MORE 06/13/2021 80744-GBBMQMC NAIL, 6 OR MORE 09/03/2021 01008-TUGWPDN NAIL, 6 OR MORE 12/03/2021 25562-RWVHTII NAIL, 6 OR MORE 02/11/2022 16756-YXSBSWR NAIL, 6 OR MORE 04/22/2022 71047-ESTSBWF NAIL, 6 OR MORE 07/26/2024 05402-RHOOBZX NAIL, 6 OR MORE 10/25/2024 95498-MJFZHXM NAIL, 6 OR MORE 01/24/2025 38674-VWBKLYE NAIL, 6 OR MORE 04/11/2025 55563-TWUIZTK NAIL, 6 OR MORE 07/04/2025 81364-Qkvbbglh Plate 01/26/2024 25821- Debride <25 sq cm 04/22/2022 80587- Debride <25 sq cm 10/07/2022 92354-JDSQ SKIN LESIONS, 2 TO 4 12/17/19 05811-QIOK SKIN LESIONS, 2 TO 4 06/09/20 41788-CLQS SKIN LESIONS, 2 TO 4 03/03/20 70106-VHIT SKIN LESIONS, 2 TO 4 04/26/20 50543-EOMZ SKIN LESIONS, 2 TO 4 01/26/20 05575-UNXA SKIN LESIONS, 2 TO 4 08/27/20 87251-WHBW SKIN LESIONS, 2 TO 4 11/10/19 60615-SVHB SKIN LESIONS, 2 TO 4 07/04/20 11607-EZBO SKIN LESIONS, 2 TO 4 04/11/20 76862-NJUD SKIN LESIONS, 2 TO 4 01/25/20 16487-EQVM SKIN LESIONS, 2 TO 4 10/25/19 54743-VSQB SKIN LESIONS, 2 TO 4 07/26/20 50731 - Tenotomy, open flexor 06/23/2019 07252 - Tenotomy, open flexor 04/16/2021 Next Appt Details Provider Name:Fer Greenberg , 10/24/2025 10:00:00 AM, [address] [facility], [address], [place], [address], Insurance Providers Payer Name Payer Address Payer Phone Subscriber Number Group Number Insured Name Patient Relationship to Insured Coverage Start Date Coverage End Date [employer] [address] [place] [address] [id number] Mini Crane Self - patient is the insured 4 Medical (General) History Medical History History ICD Code Arthritis Back,Hip,and Knee pain CAD Chicken pox High blood pressure Mumps Measles Joint implants/screws Surgical History Surgery Date(Month/Year) left knee replacement 2010 right knee replacement 2009
== END 2025-08-29 09:11 | disposition home or self-care (01) ==
LOC: HO.LAB 09:10
DX: E78.00 Pure hypercholesterolemia, unspecified (principal); E87.6 Hypokalemia
CPT/HCPCS: 36415; 80053; 80061